=== PATIENT | female | born 1980 | race American Indian/Alaskan Native ===

== ENCOUNTER 2021-08-09 19:31 | Inpatient (IN) | payer BC ==
--- NOTE | 2021-08-09 21:06 | Emergency Department Report ---
ED General Adult HPI - General Chief complaint: Altered Mental Status Stated complaint: AMS Time Seen by Provider: 08/09/21 20:59 Source: EMS ( EMS documentation not available at time of chart dictation ), RN notes reviewed Mode of arrival: Stretcher Limitations: Altered Mental Status, Physical Limitation - History of Present Illness Initial comments: The patient was evaluated in the emergency department for symptoms described in the history of present illness. He/she was evaluated in the context of the global COVID-19 pandemic, which necessitated consideration that the patient might be at risk for infection with the virus that causes COVID-19. Institutional protocols and algorithms that pertain to the evaluation of patients at risk for COVID-19 are in a state of rapid change based on information released by regulatory bodies including the CDC and federal and state organizations. These policies and algorithms were followed during the patient's care in the emergency department. Please note that these policies, procedures and recommendations changed on a rapid basis. This is a 30-year-old female. The details of her past medical history are not known to myself. Patient is currently altered, and not currently accompanied by friends or family at this time for collateral information or additional information. History entirely obtained from triage nursing documentation. Chief complaint is altered mental status, as per nursing documentation "patient's family found patient unresponsive at home on floor, family not aware of patient has alcohol on board, patient does abuse alcohol, eyes jaundice, patient responds to painful stimuli, EMS arrived home at 18: 22." In the emergency room, the patient moves 4 extremities. She makes nonsensical sounds. She is breathing spontaneously. Her Accu-Chek is 117. It is not known how or when she fell. History is limited. Patient currently unable to describe the qualitative nature of symptoms, exacerbating factors relieving factors or aggravating factors -: unknown - Related Data Allergies Allergy/AdvReac Type Severity Reaction Status Date / Time No Known Allergies Allergy Unverified 08/09/21 20:35 ED Review of Systems ROS: Stated complaint: AMS Other details as noted in HPI Comment: Unobtainable due to pts medical conditions ED Past Medical Hx - Past Medical History Previous Medical History?: Yes Additional medical history: ETOH - Social History Smoking Status: Unknown if ever smoked ED Physical Exam - General Limitations: Altered Mental Status, Physical Limitation General appearance: lethargic - Head Head exam: Present: atraumatic, normocephalic - Eye Eye exam: Present: normal appearance, PERRL, EOMI, scleral icterus - ENT ENT exam: Present: normal exam, normal orophraynx, mucous membranes moist, normal external ear exam - Neck Neck exam: Present: normal inspection. Absent: tenderness - Respiratory Respiratory exam: Present: decreased breath sounds. Absent: respiratory distress, rales, rhonchi, stridor - Cardiovascular Cardiovascular Exam: Present: regular rate, normal rhythm, normal heart sounds. Absent: bradycardia, tachycardia, irregular rhythm, systolic murmur, diastolic murmur, rubs, gallop - GI/Abdominal GI/Abdominal exam: Present: soft, distended. Absent: tenderness, guarding, rebound, rigid, pulsatile mass - Extremities Exam Extremities exam: Present: normal inspection, full ROM, pedal edema, other (2+ pulses noted in the bilateral upper and lower extremities. There is no palpable cord. negative Homans sign. Muscular compartments are soft. The pelvis is stable.). Absent: calf tenderness - Back Exam Back exam: Present: normal inspection. Absent: tenderness, CVA tenderness (R), CVA tenderness (L), paraspinal tenderness, vertebral tenderness - Neurological Exam Neurological exam: Present: altered, other (The patient is altered. The patient localizes pain. The patient moves 4 extremities spontaneously.) - Psychiatric Psychiatric exam: Present: normal mood - Skin Skin exam: Present: warm, intact, normal color, other (The patient is diffusely jaundiced) ED Course Vital Signs 08/09/21 08/09/21 20:31 21:43 Temperature 98.3 F Pulse Rate 82 Respiratory 16 18 Rate Blood Pressure 103/58 O2 Sat by Pulse 100 99 Oximetry - Reevaluation(s) Reevaluation #1: 08/09/21 21:41 Differential diagnosis, including not limited to: Hepatic encephalopathy, hyperammonemia, electrolyte derangement, pneumonia, UTI, hypoalbuminemia, malnutrition, intracranial injury, cervical spine injury Assessment and plan: 40-year-old female with stigmata of decompensated liver disease, manifested by abdominal distention, without tenderness, rebound or guarding, positive lower extremity swelling, jaundiced complexion, and scleral icterus. Accu-Chek within normal limits. Patient protecting airway at this ti or. Obtain appropriate laboratory studies. Obtain noncontrast CT scan of the brain and cervical spine. Obtain x-ray of the chest. Should family members present, attempt to obtain collateral information. Reassess. Patient will require admission to medical service once initial diagnostics have resulted. 08/09/21 22:05 Nursing team reports to myself that patient rolled out, and had a gently con trolled descent to the floor. Her right hip hit the floor first, followed by a gentle lowering of her head. There is no ecchymosis or evidence of blunt head trauma to her head. She is breathing spontaneously. CT scan brain and cervical spine negative for acute traumatic findings. X-ray the chest suggest possible interstitial edema, likely secondary to third spacing, likely secondary to hepatic insufficiency. Patient Mr. Neymar Brambila is now currently at the bedside, [id number]. He reports the patient was admitted to [facility] last year for similar symptoms. He reports that the patient has been jaundiced for a few days to weeks. The patient is not COVID-19 vaccinated. I explained my clinical impression to the patient's . He articulates understanding. He is agreeable to have the patient admitted here. We are currently awaiting diagnostic laboratory studies 08/09/21 22:59 Patient is found to have thrombocytopenia, macrocytic anemia, no blood on rectal exam, hyperammonemia, hyperbilirubinemia, metabolic acidosis, with negative serum toxicology studies. Low-dose Lasix, empiric ceftriaxone, Protonix, and rectal lactulose will be ordered. INR is indicative of hepatic insufficiency. Abdomen soft and benign, without rebound, guarding or peritoneal signs. Given coagulopathy, would not perform paracentesis at this time. Contacted GI on-call, Dr Cheng Discussed the patient's history, physical, laboratory studies and imaging studies and clinical impression. She is in agreement with the plan of care, and GI will follow in consultation. Request abdominal ultrasound. I will order the ultrasound, and defer to inpatient team to follow this up. Hospital physician, Dr. Felipe Amos to admit to IMS On rectal examination, brown stool, no obvious blood, chaperoned by nurse Hermelinda. 08/09/21 23:36 Have received call from gastroenterology, they requested noncontrast CT scan of the abdomen pelvis to better delineate anatomy, will cancel ultrasound. ED Medical Decision Making - Lab Data Result diagrams: 08/09/21 21:25 08/09/21 21:25 Vital Signs 08/09/21 20:31 Temperature 98.3 F Pulse Rate 82 Respiratory 16 Rate Blood Pressure 103/58 O2 Sat by Pulse 100 Oximetry Lab Results 08/09/21 08/09/21 08/09/21 Range/Units 21:25 21:25 21:25 WBC 13.4 H (4.5-11.0) K/mm3 RBC 2.06 L (3.65-5.03) M/mm3 Hgb 7.4 L (10.1-14.3) gm/dl Hct 21.9 L (30.3-42.9) % MCV 106 H (79-97) fl MCH 36 H (28-32) pg MCHC 34 (30-34) % RDW 20.8 H (13.2-15.2) % Plt Count 108 L (140-440) K/mm3 Lymph % (Auto) 14.2 (13.4-35.0) % [place] % (Auto) 7.3 (0.0-7.3) % Eos % (Auto) 0.2 (0.0-4.3) % Baso % (Auto) 0.2 (0.0-1.8) % Lymph # (Auto) 1.9 (1.2-5.4) K/mm3 [place] # (Auto) 1.0 H (0.0-0.8) K/mm3 Eos # (Auto) 0.0 (0.0-0.4) K/mm3 Baso # (Auto) 0.0 (0.0-0.1) K/mm3 Seg Neutrophils % 78.1 H (40.0-70.0) % Seg Neutrophils # 10.5 H (1.8-7.7) K/mm3 PT 33.7 H (12.2-14.9) Sec. INR 2.85 H (0.87-1.13) APTT 49.2 H (24.2-36.6) Sec. Sodium 137 (137-145) mmol/L Potassium 4.9 (3.6-5.0) mmol/L Chloride 100.8 (98-107) mmol/L Carbon Dioxide 17 L (22-30) mmol/L Anion Gap 24 mmol/L BUN 30 H (7-17) mg/dL Creatinine 1.1 (0.6-1.2) mg/dL Estimated GFR 54 ml/min BUN/Creatinine Ratio 27 % Glucose 126 H (65-100) mg/dL POC Glucose (70-105) mg/dL Calcium 8.7 (8.4-10.2) mg/dL Total Bilirubin 19.40 H (0.1-1.2) mg/dL AST 174 H (5-40) units/L ALT 53 (7-56) units/L Alkaline Phosphatase 97 (35-129) units/L Ammonia (25-60) umol/L Total Creatine Kinase 81 (30-135) units/L Troponin T < 0.010 (0.00-0.029) ng/mL Total Protein 7.8 (6.3-8.2) g/dL Albumin 2.5 L (3.9-5) g/dL Albumin/Globulin Ratio 0.5 % HCG, Quant (0-4) mIU/mL Urine RBC (Auto) (0.0-6.0) /HPF U Epithel Cells (Auto) (0-13.0) /HPF Salicylates (2.8-20.0) mg/dL Acetaminophen (10.0-30.0) ug/mL Plasma/Serum Alcohol (0-0.07) % Blood Type Antibody Screen 08/09/21 08/09/21 08/09/21 Range/Units 21:25 21:25 21:25 WBC (4.5-11.0) K/mm3 RBC (3.65-5.03) M/mm3 Hgb (10.1-14.3) gm/dl Hct (30.3-42.9) % MCV (79-97) fl MCH (28-32) pg MCHC (30-34) % RDW (13.2-15.2) % Plt Count (140-440) K/mm3 Lymph % (Auto) (13.4-35.0) % [place] % (Auto) (0.0-7.3) % Eos % (Auto) (0.0-4.3) % Baso % (Auto) (0.0-1.8) % Lymph # (Auto) (1.2-5.4) K/mm3 [place] # (Auto) (0.0-0.8) K/mm3 Eos # (Auto) (0.0-0.4) K/mm3 Baso # (Auto) (0.0-0.1) K/mm3 Seg Neutrophils % (40.0-70.0) % Seg Neutrophils # (1.8-7.7) K/mm3 PT (12.2-14.9) Sec. INR (0.87-1.13) APTT (24.2-36.6) Sec. Sodium (137-145) mmol/L Potassium (3.6-5.0) mmol/L Chloride (98-107) mmol/L Carbon Dioxide (22-30) mmol/L Anion Gap mmol/L BUN (7-17) mg/dL Creatinine (0.6-1.2) mg/dL Estimated GFR ml/min BUN/Creatinine Ratio % Glucose (65-100) mg/dL POC Glucose (70-105) mg/dL Calcium (8.4-10.2) mg/dL Total Bilirubin (0.1-1.2) mg/dL AST (5-40) units/L ALT (7-56) units/L Alkaline Phosphatase (35-129) units/L Ammonia 293.0 H (25-60) umol/L Total Creatine Kinase (30-135) units/L Troponin T (0.00-0.029) ng/mL Total Protein (6.3-8.2) g/dL Albumin (3.9-5) g/dL Albumin/Globulin Ratio % HCG, Quant (0-4) mIU/mL Urine RBC (Auto) (0.0-6.0) /HPF U Epithel Cells (Auto) (0-13.0) /HPF Salicylates < 0.3 L (2.8-20.0) mg/dL Acetaminophen 5.0 L (10.0-30.0) ug/mL Plasma/Serum Alcohol (0-0.07) % Blood Type Antibody Screen 08/09/21 08/09/21 08/09/21 Range/Units 21:25 21:25 21:26 WBC (4.5-11.0) K/mm3 RBC (3.65-5.03) M/mm3 Hgb (10.1-14.3) gm/dl Hct (30.3-42.9) % MCV (79-97) fl MCH (28-32) pg MCHC (30-34) % RDW (13.2-15.2) % Plt Count (140-440) K/mm3 Lymph % (Auto) (13.4-35.0) % [place] % (Auto) (0.0-7.3) % Eos % (Auto) (0.0-4.3) % Baso % (Auto) (0.0-1.8) % Lymph # (Auto) (1.2-5.4) K/mm3 [place] # (Auto) (0.0-0.8) K/mm3 Eos # (Auto) (0.0-0.4) K/mm3 Baso # (Auto) (0.0-0.1) K/mm3 Seg Neutrophils % (40.0-70.0) % Seg Neutrophils # (1.8-7.7) K/mm3 PT (12.2-14.9) Sec. INR (0.87-1.13) APTT (24.2-36.6) Sec. Sodium (137-145) mmol/L Potassium (3.6-5.0) mmol/L Chloride (98-107) mmol/L Carbon Dioxide (22-30) mmol/L Anion Gap mmol/L BUN (7-17) mg/dL Creatinine (0.6-1.2) mg/dL Estimated GFR ml/min BUN/Creatinine Ratio % Glucose (65-100) mg/dL POC Glucose 117 H (70-105) mg/dL Calcium (8.4-10.2) mg/dL Total Bilirubin (0.1-1.2) mg/dL AST (5-40) units/L ALT (7-56) units/L Alkaline Phosphatase (35-129) units/L Ammonia (25-60) umol/L Total Creatine Kinase (30-135) units/L Troponin T (0.00-0.029) ng/mL Total Protein (6.3-8.2) g/dL Albumin (3.9-5) g/dL Albumin/Globulin Ratio % HCG, Quant < 2 (0-4) mIU/mL Urine RBC (Auto) (0.0-6.0) /HPF U Epithel Cells (Auto) (0-13.0) /HPF Salicylates (2.8-20.0) mg/dL Acetaminophen (10.0-30.0) ug/mL Plasma/Serum Alcohol < 0.01 (0-0.07) % Blood Type Antibody Screen 08/09/21 08/09/21 Range/Units 21:38 21:43 WBC (4.5-11.0) K/mm3 RBC (3.65-5.03) M/mm3 Hgb (10.1-14.3) gm/dl Hct (30.3-42.9) % MCV (79-97) fl MCH (28-32) pg MCHC (30-34) % RDW (13.2-15.2) % Plt Count (140-440) K/mm3 Lymph % (Auto) (13.4-35.0) % [place] % (Auto) (0.0-7.3) % Eos % (Auto) (0.0-4.3) % Baso % (Auto) (0.0-1.8) % Lymph # (Auto) (1.2-5.4) K/mm3 [place] # (Auto) (0.0-0.8) K/mm3 Eos # (Auto) (0.0-0.4) K/mm3 Baso # (Auto) (0.0-0.1) K/mm3 Seg Neutrophils % (40.0-70.0) % Seg Neutrophils # (1.8-7.7) K/mm3 PT (12.2-14.9) Sec. INR (0.87-1.13) APTT (24.2-36.6) Sec. Sodium (137-145) mmol/L Potassium (3.6-5.0) mmol/L Chloride (98-107) mmol/L Carbon Dioxide (22-30) mmol/L Anion Gap mmol/L BUN (7-17) mg/dL Creatinine (0.6-1.2) mg/dL Estimated GFR ml/min BUN/Creatinine Ratio % Glucose (65-100) mg/dL POC Glucose (70-105) mg/dL Calcium (8.4-10.2) mg/dL Total Bilirubin (0.1-1.2) mg/dL AST (5-40) units/L ALT (7-56) units/L Alkaline Phosphatase (35-129) units/L Ammonia (25-60) umol/L Total Creatine Kinase (30-135) units/L Troponin T (0.00-0.029) ng/mL Total Protein (6.3-8.2) g/dL Albumin (3.9-5) g/dL Albumin/Globulin Ratio % HCG, Quant (0-4) mIU/mL Urine RBC (Auto) 3.0 (0.0-6.0) /HPF U Epithel Cells (Auto) 2.0 (0-13.0) /HPF Salicylates (2.8-20.0) mg/dL Acetaminophen (10.0-30.0) ug/mL Plasma/Serum Alcohol (0-0.07) % Blood Type A POSITIVE Antibody Screen Negative - EKG Data -: EKG Interpreted by [place] EKG shows normal: sinus rhythm Rate: normal - EKG Data When compared to previous EKG there are: previous EKG unavailable 08/09/21 21:42 The EKG is interpreted at 21: 29 Sinus rhythm, 87 bpm. Normal axis, normal P wave axis, motion artifact, QTC 4 7 7 ms. This is an abnormal EKG. This is not a STEMI - Radiology Data Radiology results: pending, report reviewed, image reviewed CT CERVICAL SPINE WITHOUT CONTRAST INDICATION / CLINICAL INFORMATION: ams found down. TECHNIQUE: Axial CT images were obtained through the cervical spine. Sagittal and coronal reformatted images were produced. All CT scans at this location are performed using CT dose reduction for ALARA by means of automated exposure control. COMPARISON: None available. FINDINGS: POSTOPERATIVE CHANGE:none ALIGNMENT: Loss the normal cervical lordosis is noted. Otherwise normal alignment is maintained. VERTEBRAE: No indication of fracture or bone destruction. DISC SPACES: Disc height is normally maintained throughout. DEGENERATIVE CHANGES: Is no indication of significant facet or uncovertebral arthropathy. CRANIOCERVICAL JUNCTION:No significant abnormality. SPINAL CANAL: Central spinal canal is adequately maintained throughout. PARASPINAL SOFT TISSUES: No significant abnormality. ADDITIONAL FINDINGS: None. LUNG APICES: No significant abnormality of visualized lungs. IMPRESSION: 1. No indication of fracture, traumatic subluxation or significant degenerative change. Signer Name: Farhat Andrade MD Signed: 08/09/2021 8:48 PM Workstation Name: [id number] CT HEAD WITHOUT CONTRAST INDICATION / CLINICAL INFORMATION: Altered Mental Status. TECHNIQUE: All CT scans at this location are performed using CT dose reduction for ALARA by means of automated exposure control. COMPARISON: None available. FINDINGS: HEMORRHAGE: No evidence of intracranial hemorrhage or extra-axial fluid collection. EXTRA-AXIAL SPACES: Cortical sulci, sylvian fissures and basilar cisterns have an unremarkable appearance. VENTRICULAR SYST EM: The third and lateral ventricles are of normal size and configuration. CEREBRAL PARENCHYMA: No areas of abnormal brain parenchymal attenuation are identified. There is no indication of recent infarction. MIDLINE SHIFT OR HERNIATION: There is no mass effect. CEREBELLUM / BRAINSTEM: Brainstem and cerebellum have an unremarkable appearance. MIDLINE STRUCTURES:No abnormalities of the pituitary gland or pineal region are identified. INTRACRANIAL VESSELS:No abnormalities are identified on this noncontrast head CT. ORBITS: There is deformity of the lamina papyracea on the right secondary to remote right orbital blowout fracture. There is no associated orbital emphysema. SOFT TISSUES of HEAD: No significant abnormality. CALVARIUM: Evaluation of bone windows reveals no abnormalities. PARANASAL SINUSES / MASTOID AIR CELLS: Visualized portions of the paranasal sinuses are free from inflammatory mucosal disease. Mastoid air cells are normally pneumatized. IMPRESSION: 1. No significant intracranial abnormality. 2. Evidence remote medial wall blowout fracture right orbit. Signer Name: Farhat Andrade MD Signed: 08/09/2021 8:52 PM Workstation Name: [id number] CHEST 1 VIEW 08/09/2021 9:08 PM INDICATION / CLINICAL INFORMATION: Altered Mental Status. COMPARISON: None available. FINDINGS: SUPPORT DEVICES: None. HEART / MEDIASTINUM: No significant abnormality. LUNGS / PLEURA: There are generalized bilateral interstitial opacities. No significant pleural effusion. No pneumothorax. ADDITIONAL FINDINGS: No significant additional findings. IMPRESSION: Interstitial edema versus other interstitial prominence, possibly representing chronic interstitial lung disease. Signer Name: Clinton Soria MD Signed: 08/09/2021 8:38 PM Workstation Name: [id number] Critical Care Time: Yes Critical care time in (mins) excluding proc time.: 35 Critical care attestation.: If time is entered above; I have spent that time in minutes in the direct care of this critically ill patient, excluding procedure time. ED Disposition Clinical Impression: Acute encephalopathy, Fall, Jaundice, Hepatic insufficiency, Anemia, Coagulopathy Disposition: ADMITTED INPATIENT Is pt being admited?: Yes Does the pt Need Aspirin: No Condition: Serious
--- NOTE | 2021-08-09 21:42 | XRay Report ---
CHEST 1 VIEW 08/09/2021 9:08 PM INDICATION / CLINICAL INFORMATION: Altered Mental Status. COMPARISON: None available. FINDINGS: SUPPORT DEVICES: None. HEART / MEDIASTINUM: No significant abnormality. LUNGS / PLEURA: There are generalized bilateral interstitial opacities. No significant pleural effusi on. No pneumothorax. ADDITIONAL FINDINGS: No significant additional findings. IMPRESSION: Interstitial edema versus other interstitial prominence, possibly representing chronic interstitial l kassandra disease. Signer Name: Clinton Soria MD Signed: 08/09/2021 9:38 PM Workstation Name: [id number]
--- NOTE | 2021-08-09 21:53 | Cat Scan Report ---
CT CERVICAL SPINE WITHOUT CONTRAST INDICATION / CLINICAL INFORMATION: ams found down. TECHNIQUE: Axial CT images were obtained through the cervical spine. Sagittal and coronal reformatted images wer e produced. All CT scans at this location are performed using CT dose reduction for ALARA by means of automated exposure control. COMPARISON: None available. FINDINGS: POSTOPERATIVE CHANGE:none ALIGNMENT: Loss the normal cervical lordosis is noted. Otherwise normal alignment is maintained. VERTEBRAE: No indication of fracture or bone destruction. DISC SPACES: Disc height is normally maintained throughout. DEGENERATIVE CHANGES: Is no indication of significant facet or uncovertebral arthropathy. CRANIOCERVICAL JUNCTION:No significant abnormality. SPINAL CANAL: Central spinal canal is adequately maintained throughout. PARASPINAL SOFT TISSUES: No significant abnormality. ADDITIONAL FINDINGS: None. LUNG APICES: No significant abnormality of visualized lungs. IMPRESSION: 1. No indication of fracture, traumatic subluxation or significant degenerative change. Signer Name: Farhat Andrade MD Signed: 08/09/2021 9:48 PM Workstation Name: [id number]
--- NOTE | 2021-08-09 21:57 | Cat Scan Report ---
CT HEAD WITHOUT CONTRAST INDICATION / CLINICAL INFORMATION: Altered Mental Status. TECHNIQUE: All CT scans at this location are performed using CT dose reduction for ALARA by means of automated e xposure control. COMPARISON: None available. FINDINGS: HEMORRHAGE: No evidence of intracranial hemorrhage or extra-axial fluid collection. EXTRA-AXIAL SPACES: Cortical sulci, sylvian fissures and basilar cisterns have an unremarkable appear ance. VENTRICULAR SYSTEM: The third and lateral ventricles are of normal size and configuration. CEREBRAL PARENCHYMA: No areas of abnormal brain parenchymal attenuation are identified. There is no i ndication of recent infarction. MIDLINE SHIFT OR HERNIATION: There is no mass effect. CEREBELLUM / BRAINSTEM: Brainstem and cerebellum have an unremarkable appearance. MIDLINE STRUCTURES:No abnormalities of the pituitary gland or pineal region are identified. INTRACRANIAL VESSELS:No abnormalities are identified on this noncontrast head CT. ORBITS: There is deformity of the lamina papyracea on the right secondary to remote right orbital blo wout fracture. There is no associated orbital emphysema. SOFT TISSUES of HEAD: No significant abnormality. CALVARIUM: Evaluation of bone windows reveals no abnormalities. PARANASAL SINUSES / MASTOID AIR CELLS: Visualized portions of the paranasal sinuses are free from inf lammatory mucosal disease. Mastoid air cells are normally pneumatized. IMPRESSION: 1. No significant intracranial abnormality. 2. Evidence remote medial wall blowout fracture right orbit. Signer Name: Farhat Andrade MD Signed: 08/09/2021 9:52 PM Workstation Name: [id number]
[2021-08-09 22:05] LABS: Basophils % (Auto) 0.2 % (0.0-1.8); Eosinophils % (Auto) 0.2 % (0.0-4.3); Hematocrit 21.9 % (30.3-42.9); Hemoglobin 7.4 gm/dl (10.1-14.3); Lymphocytes # (Auto) 1.9 K/mm3 (1.2-5.4); Lymphocytes % (Auto) 14.2 % (13.4-35.0); Mean Corpuscular HGB Conc 34 % (30-34); Mean Corpuscular Volume 106 fl (79-97); Monocytes % (Auto) 7.3 % (0.0-7.3); Platelet Count 108 K/mm3 (140-440); Red Blood Count 2.06 M/mm3 (3.65-5.03)
[2021-08-09 22:06] LABS: Red Cell Distribution Width 20.8 % (13.2-15.2)
[2021-08-09 22:13] LABS: Alanine Aminotransferase 53 units/L (7-56); Albumin 2.5 g/dL (3.9-5); BUN/Creatinine Ratio 27; Blood Urea Nitrogen 30 mg/dL (7-17); Calcium 8.7 mg/dL (8.4-10.2); Hemolysis Index 18
[2021-08-09 22:15] LABS: INR 2.85 (0.87-1.13)
[2021-08-09 22:16] LABS: Partial Thromboplastin Time 49.2 Sec. (24.2-36.6)
[2021-08-09] MEDS ORDERED: PANTOPRAZOLE 40 MG INJ IV ONE (22:24)
[2021-08-09] MEDS ORDERED: cefTRIAXone/NS 2 GM/100 ML 2 GM/100 ML BAG IV ONE (22:38)
[2021-08-09] MEDS ORDERED: FUROSEMIDE 20 MG/2 ML INJ IV ONE (22:39)
[2021-08-09 22:54] LABS: Calcium Oxalate Crystals,Urine FEW; Mucus,Urine FEW /HPF
[2021-08-09 22:57] LABS: Color,Urine Amber (Yellow)
[2021-08-09 22:59] LABS: Amphetamine Screen,Urine PRESUMPTIVE NEGATIVE; Benzodiazepines Screen,Urine PRESUMPTIVE NEGATIVE; Blood,Urine Moderate (Negative); Cannabinoid Screen,Urine PRESUMPTIVE NEGATIVE; Cocaine Screen,Urine PRESUMPTIVE NEGATIVE; Methadone Screen,Urine PRESUMPTIVE NEGATIVE; Opiate Screen,Urine PRESUMPTIVE NEGATIVE
[2021-08-09 23:00] LABS: Bilirubin,Urine Color Interference (Negative); Protein,Urine <15 mg/dL mg/dL (Negative); Urobilinogen,Urine < 2.0 mg/dL (<2.0)
[2021-08-09 23:03] LABS: Ictotest,Urine Positive (Negative)
[2021-08-09] MEDS ORDERED: ONDANSETRON 4 MG/2 ML INJ IV PRN (23:04)
[2021-08-09] MEDS ORDERED: IBUPROFEN 600 MG TAB PO PRN (23:04)
[2021-08-09] MEDS ORDERED: LORazepam 2 MG/ML VIAL IV PRN ×2 (23:04)
[2021-08-09] MEDS ORDERED: MORPHINE 2 MG/1 ML INJ IV PRN (23:04)
[2021-08-09] MEDS ORDERED: MORPHINE 4 MG/1 ML INJ IV PRN (23:04)
[2021-08-09] MEDS ORDERED: MAGNESIUM HYDROXIDE (MOM) ORAL LIQD UDC PO PRN (23:04)
--- NOTE | 2021-08-09 23:32 | History and Physical Report ---
History of Present Illness Date of examination: 08/09/21 Date of admission: 08/09/2021 Chief complaint: Altered Mental Status History of present illness: 40-year-old -[place] female with known history of alcohol abuse brought in to the emergency room today for evaluation of changes in mental status. Information was obtained from the ER staff as patient is unable to give any history at this time and family members were also not available. Patient was said to have been found by family unresponsive on the floor and therefore EMS was called in. Work-up in the emergency room today, labs were globally abnormal with leukocytosis of 13.4, hemoglobin of 7.4 and hematocrit of 21.9. Platelet count was 108. INR was 2.85. CO2 of 17, BUN of 38 and creatinine of 1.1. Lactic acid is 4.8. AST of 174. Total bilirubin of 19.4. Urinalysis essentially unremarkable. Alcohol level was less than 0.01. Patient being admitted with acute encephalopathy and anemia. Past History Past Medical History: anemia, liver disease Past Surgical History: No surgical history Social history: alcohol abuse Family history: no significant family history Medications and Allergies Allergies Allergy/AdvReac Type Severity Reaction Status Date / Time No Known Allergies Allergy Unverified 08/09/21 20:35 Active Meds: Active Medications Ibuprofen (Ibuprofen 600 Mg Tab) 600 mg PO Q6H PRN PRN Reason: Pain, Mild (1-3) Lactulose (Lactulose Enema 1000 Ml) 200 gm MT ONCE ONE Stop: 08/09/21 23:37 Last Admin: 08/09/21 23:05 Dose: 200 gm Lorazepam (Lorazepam 2 Mg/Ml Vial) 2 mg IV Q1H PRN PRN Reason: CIWA-Ar 8-15 Lorazepam (Lorazepam 2 Mg/Ml Vial) 4 mg IV Q1H PRN PRN Reason: CIWA-Ar 16-25 Lorazepam (Lorazepam 2 Mg/Ml Vial) 4 mg IV Q15MIN PRN PRN Reason: CIWA-Ar >25 Magnesium Hydroxide (Magnesium Hydroxide (Mom) Oral Liqd Udc) 30 ml PO Q4H PRN PRN Reason: Constipation Morphine Sulfate (Morphine 2 Mg/1 Ml Inj) 2 mg IV Q4H PRN PRN Reason: Pain, Moderate (4-6) Morphine Sulfate (Morphine 4 Mg/1 Ml Inj) 4 mg IV Q4H PRN PRN Reason: Pain , Severe (7-10) Ondansetron HCl (Ondansetron 4 Mg/2 Ml Inj) 4 mg IV Q8H PRN PRN Reason: Nausea And Vomiting Sodium Chloride (Sodium Chloride 0.9% 10 Ml Flush Syringe) 10 ml IV BID DEREK Sodium Chloride (Sodium Chloride 0.9% 10 Ml Flush Syringe) 10 ml IV PRN PRN PRN Reason: LINE FLUSH Review of Systems ROS unobtainable: due to mental status Exam - Constitutional Vitals: Temp Pulse Resp BP Pulse Ox 98.3 F 82 18 103/58 99 08/09/21 20:31 08/09/21 20:31 08/09/21 21:43 08/09/21 20:31 08/09/21 21:43 General appearance: Present: no acute distress, well-nourished - EENT Eyes: Present: PERRL, EOM intact, scleral icterus ENT: hearing intact, clear oral mucosa, dentition normal - Neck Neck: Present: supple, normal ROM - Respiratory Respiratory effort: normal Respiratory: bilateral: diminished - Cardiovascular Rhythm: regular Heart Sounds: Present: S1 & S2. Absent: gallop, systolic murmur, diastolic murmur, rub, click - Extremities Extremities: no ischemia, pulses intact, pulses symmetrical, No edema, normal temperature, normal color, Full ROM Peripheral Pulses: within normal limits - Abdominal General gastrointestinal: Present: soft, non-tender, distended, normal bowel sounds. Absent: mass - Integumentary Integumentary: Present: clear, warm, dry, jaundice, normal turgor. Absent: rash - Musculoskeletal Musculoskeletal: strength equal bilaterally - Psychiatric Psychiatric: cooperative - Neurologic Neurologic: CNII-XII intact, moves all extremities HEART Score - HEART Score Troponin: Troponin T < 0.010 ng/mL (0.00-0.029) 08/09/21 21:25 Results - Labs CBC & Chem 7: 08/09/21 21:25 08/09/21 21:25 Labs: Abnormal lab results 08/09/21 08/09/21 08/09/21 Range/Units 21:25 21:25 21:25 WBC 13.4 H (4.5-11.0) K/mm3 RBC 2.06 L (3.65-5.03) M/mm3 Hgb 7.4 L (10.1-14.3) gm/dl Hct 21.9 L (30.3-42.9) % MCV 106 H (79-97) fl MCH 36 H (28-32) pg RDW 20.8 H (13.2-15.2) % Plt Count 108 L (140-440) K/mm3 [place] # (Auto) 1.0 H (0.0-0.8) K/mm3 Seg Neutrophils % 78.1 H (40.0-70.0) % Seg Neutrophils # 10.5 H (1.8-7.7) K/mm3 PT 33.7 H (12.2-14.9) Sec. INR 2.85 H (0.87-1.13) APTT 49.2 H (24.2-36.6) Sec. Carbon Dioxide 17 L (22-30) mmol/L BUN 30 H (7-17) mg/dL Glucose 126 H (65-100) mg/dL POC Glucose (70-105) mg/dL Total Bilirubin 19.40 H (0.1-1.2) mg/dL AST 174 H (5-40) units/L Ammonia (25-60) umol/L Albumin 2.5 L (3.9-5) g/dL Urine Blood (Negative) Salicylates (2.8-20.0) mg/dL Acetaminophen (10.0-30.0) ug/mL 08/09/21 08/09/21 08/09/21 Range/Units 21:25 21:25 21:25 WBC (4.5-11.0) K/mm3 RBC (3.65-5.03) M/mm3 Hgb (10.1-14.3) gm/dl Hct (30.3-42.9) % MCV (79-97) fl MCH (28-32) pg RDW (13.2-15.2) % Plt Count (140-440) K/mm3 [place] # (Auto) (0.0-0.8) K/mm3 Seg Neutrophils % (40.0-70.0) % Seg Neutrophils # (1.8-7.7) K/mm3 PT (12.2-14.9) Sec. INR (0.87-1.13) APTT (24.2-36.6) Sec. Carbon Dioxide (22-30) mmol/L BUN (7-17) mg/dL Glucose (65-100) mg/dL POC Glucose (70-105) mg/dL Total Bilirubin (0.1-1.2) mg/dL AST (5-40) units/L Ammonia 293.0 H (25-60) umol/L Albumin (3.9-5) g/dL Urine Blood (Negative) Salicylates < 0.3 L (2.8-20.0) mg/dL Acetaminophen 5.0 L (10.0-30.0) ug/mL 08/09/21 08/09/21 Range/Units 21:26 21:43 WBC (4.5-11.0) K/mm3 RBC (3.65-5.03) M/mm3 Hgb (10.1-14.3) gm/dl Hct (30.3-42.9) % MCV (79-97) fl MCH (28-32) pg RDW (13.2-15.2) % Plt Count (140-440) K/mm3 [place] # (Auto) (0.0-0.8) K/mm3 Seg Neutrophils % (40.0-70.0) % Seg Neutrophils # (1.8-7.7) K/mm3 PT (12.2-14.9) Sec. INR (0.87-1.13) APTT (24.2-36.6) Sec. Carbon Dioxide (22-30) mmol/L BUN (7-17) mg/dL Glucose (65-100) mg/dL POC Glucose 117 H (70-105) mg/dL Total Bilirubin (0.1-1.2) mg/dL AST (5-40) units/L Ammonia (25-60) umol/L Albumin (3.9-5) g/dL Urine Blood Moderate A (Negative) Salicylates (2.8-20.0) mg/dL Acetaminophen (10.0-30.0) ug/mL Assessment and Plan Assessment: 1.Acute Encephalopathy 2.Anemia 3.Elevated Liver Enzymes 4.Alcohol Abuse 5.Fall Plan: 1. Patient admitted and will be closely monitored in the IMCU. 2. Technical Proposal Writer has been consulted for evaluation and recommendations. 3. Meanwhile, patient has been started on lactulose. 4. We will place patient on alcohol withdrawal protocol. 5. We will continue to monitor labs including PT/INR. 6. Patient also commenced on empiric IV antibiotics. DVT Prophylaxis: SCD Code Status: Full Code.
[2021-08-09] MEDS ORDERED: LACTULOSE ENEMA 1000 ML PR ONE (23:36)
--- NOTE | 2021-08-10 00:59 | Cat Scan Report ---
CT ABDOMEN AND PELVIS WITHOUT CONTRAST INDICATION: Cirrhosis and abdominal distention. TECHNIQUE: Axial CT images were obtained through the abdomen and pelvis without IV contrast. All CT scans at [facility] location are performed using CT dose reduction for ALARA by means of automated exposure control. COMPARISON: None available. FINDINGS: LOWER CHEST: Calcified right lower lobe granulomas LIVER: Cirrhosis with nodular surface contour. Moderate hepatic steatosis GALLBLADDER: Multiple gallstones. BILE DUCTS: No significant abnormality. PANCREAS: No significant abnormality. SPLEEN: Borderline enlarged measuring 13.3 cm. ADRENALS: No significant abnormality. RIGHT KIDNEY and URETER: No significant abnormality. LEFT KIDNEY and URETER: 1.4 cm hypodense lesion characteristic for cyst. STOMACH and SMALL BOWEL: Gastric bypass COLON: Rectal decompression tube APPENDIX: No significant abnormality. PERITONEUM: Small amount of ascites. No free air. No fluid collection. LYMPH NODES: No significant adenopathy. AORTA and ARTERIES: No significant abnormality. IVC and VEINS: Recannulated periumbilical vein with gastroesophageal varices. URINARY BLADDER: No significant abnormality. REPRODUCTIVE ORGANS: Intrauterine IUD ADDITIONAL FINDINGS: None. SKELETAL SYSTEM: Markedly advanced right hip arthropathy. IMPRESSION: 1. Cirrhosis with portal hypertension manifested by mild splenomegaly, trace ascites and varices. 2. Cholelithiasis. Signer Name: Brody Hager MD Signed: 08/10/2021 12:55 AM Workstation Name: [id number]
[2021-08-10 05:28] LABS: BUN/Creatinine Ratio 40; Blood Urea Nitrogen 32 mg/dL (7-17); Calcium 8.7 mg/dL (8.4-10.2); Hemolysis Index 80
[2021-08-10] MEDS: LORazepam 2 MG/ML VIAL IV PRN (08:06)
[2021-08-10] MEDS: cefTRIAXone/NS 1 GM/50 ML 1 GM/50 ML BAG IV SCH (09:50)
--- NOTE | 2021-08-10 10:43 | Progress Note ---
Assessment and Plan Assessment and plan: 40-year-old -[place] female with known history of alcohol abuse brought in to the emergency room today for evaluation of changes in mental status. Information was obtained from the ER staff as patient is unable to give any history at this time and family members were also not available. Patient was said to have been found by family unresponsive on the floor and therefore EMS was called in. Work-up in the emergency room today, labs were globally abnormal with leukocytosis of 13.4, hemoglobin of 7.4 and hematocrit of 21.9. Platelet count was 108. INR was 2.85. CO2 of 17, BUN of 38 and creatinine of 1.1. Lactic acid is 4.8. AST of 174. Total bilirubin of 19.4. Urinalysis essentially unremarkable. Alcohol level was less than 0.01. Patient being admitted with acute encephalopathy and anemia. CT abdomen and pelvis IMPRESSION: 1. Cirrhosis with portal hypertension manifested by mild splenomegaly, trace ascites and varices. 2. Cholelithiasis. 1.Acute Encephalopathy secondary to liver cirrhosis 2.Anemia 3.Elevated Liver Enzymes 4.Alcohol Abuse per history 5.Fall 6. Cholelithiasis 7. Secondary coagulopathy due to liver failure with INR of 2.85 8. Portal hypertension 9. Morbid obesity 10. Thrombocytosis Plan: 1. Patient admitted and will be closely monitored in the IMCU. Continue IMCU care due to severe encephalopathy. 2. Certified Detention Deputy has been consulted for evaluation and recommendations. 3. Meanwhile, patient has been started on lactulose. 4. We will place patient on alcohol withdrawal protocol. 5. We will continue to monitor labs including PT/INR. 6. Patient also commenced on empiric IV antibiotics. 7. Had extensive discussion with the discussed goals of care advanced directive for 35 minutes. He verbalized understanding is the severity of her illness. We will place an NG tube and start lactulose via the NG tube while monitoring mentation improvement. 8. Weight loss discussion with patient more awake DVT Prophylaxis: SCD Code Status: Full Code. Poor prognosis Critical care time 35 minutes History Interval history: Patient seen and examined this morning our nurse and by the bedside. Per nurse patient was agitated earlier this morning had received some Ativan as a result is somnolent this morning. advises that the patient was just discharged about a month ago from [facility] for similar event and at that time was told to avoid alcohol unfortunately she still drank a couple here and there. No recent drinking in the last week with that he is aware of. Hospitalist Physical - Physical exam Narrative exam: VITAL SIGNS: Reviewed. GENERAL: The patient appears normally developed, morbidly obese somnolent [sedated] vital signs as documented. HEAD: No signs of head trauma. EYES: Pupils are equal. Significant scleral icterus extraocular motions intact. EARS: Hearing grossly intact. MOUTH: Oropharynx is normal. NECK: No adenopathy, no JVD. CHEST: Chest with clear breath sounds bilaterally. No wheezes, rales, or rhonchi. CARDIAC: Regular rate and rhythm. S1 and S2, without murmurs, gallops, or rubs. VASCULAR: No Edema. Peripheral pulses normal and equal in all extremities. ABDOMEN: Soft, non tender and non distended. No rebound or guarding, and no masses palpated. Bowel Sounds normal. MUSCULOSKELETAL: Good range of motion of all major joints. Extremities without clubbing, cyanosis or edema. NEUROLOGIC EXAM: Per nursing staff when awake disoriented. No focal sensory or strength deficits. Speech normal. But does not follow any commands. PSYCHIATRIC: Mood sedated SKIN: Jaundice detail exam as documented in skin assessment - Constitutional Vitals: Temp Pulse Resp BP Pulse Ox 97 F L 75 15 93/37 100 08/10/21 08:00 08/10/21 09:21 08/10/21 09:21 08/10/21 09:21 08/10/21 09:21 General appearance: Present: no acute distress, well-nourished HEART Score - HEART Score Troponin: Troponin T < 0.010 ng/mL (0.00-0.029) 08/09/21 21:25 Results - Labs CBC & Chem 7: 08/09/21 21:25 08/10/21 04:34 Labs: Laboratory Last Values WBC 13.4 K/mm3 (4.5-11.0) H 08/09/21 21:25 RBC 2.06 M/mm3 (3.65-5.03) L 08/09/21 21:25 Hgb 7.4 gm/dl (10.1-14.3) L 08/09/21 21:25 Hct 21.9 % (30.3-42.9) L 08/09/21 21:25 MCV 106 fl (79-97) H 08/09/21 21:25 MCH 36 pg (28-32) H 08/09/21 21:25 MCHC 34 % (30-34) 08/09/21 21: RDW 20.8 % (13.2-15.2) H 08/09/21 21:25 Plt Count 108 K/mm3 (140-440) L 08/09/21 21:25 Lymph % (Auto) 14.2 % (13.4-35.0) 08/09/21 21:25 [place] % (Auto) 7.3 % (0.0-7.3) 08/09/21: Eos % (Auto) 0.2 % (0.0-4.3) 08/09/21: Baso % (Auto) 0.2 % (0.0-1.8) 08/09/21: Lymph # (Auto) 1.9 K/mm3 (1.2-5.4) 08/09/21 21:25 [place] # (Auto) 1.0 K/mm3 (0.0-0.8) H 08/09/21 21:25 Eos # (Auto) 0.0 K/mm3 (0.0-0.4) 08/09/21:25 Baso # (Auto) 0.0 K/mm3 (0.0-0.1) 08/09/21 21: Seg Neutrophils % 78.1 % (40.0-70.0) H 08/09/21 21: Seg Neutrophils # 10.5 K/mm3 (1.8-7.7) H 08/09/21 21:25 PT 33.7 Sec. (12.2-14.9) H 08/09/21 21:25 INR 2.85 (0.87-1.13) H 08/09/21 21:25 APTT 49.2 Sec. (24.2-36.6) H 08/09/21 21:25 Sodium 136 mmol/L (137-145) L 08/10/21 04:34 Potassium 4.7 mmol/L (3.6-5.0) 08/10/21 04:34 Chloride 104.1 mmol/L (98-107) 08/10/21 04:34 Carbon Dioxide 18 mmol/L (22-30) L 08/10/21 04:34 Anion Gap 19 mmol/L 08/10/21 04:34 BUN 32 mg/dL (7-17) H 08/10/21 04:34 Creatinine 0.8 mg/dL (0.6-1.2) 08/10/21 04:34 Estimated GFR > 60 ml/min 08/10/21 04:34 BUN/Creatinine Ratio 40 % 08/10/21 04:34 Glucose 109 mg/dL (65-100) H 08/10/21 04:34 POC Glucose 117 mg/dL (70-105) H 08/09/21 21:26 Lactic Acid 1.90 mmol/L (0.7-2.0) 08/10/21 Unknown Calcium 8.7 mg/dL (8.4-10.2) 08/10/21 04:34 Magnesium 1.90 mg/dL (1.7-2.3) 08/09/21 21:25 Total Bilirubin 19.40 mg/dL (0.1-1.2) H 08/09/21 21:25 AST 174 units/L (5-40) H 08/09/21 21:25 ALT 53 units/L (7-56) 08/09/21 21:25 Alkaline Phosphatase 97 units/L (35-129) 08/09/21 21:25 Ammonia 73.0 umol/L (25-60) H 08/10/21 04:34 Total Creatine Kinase 86 units/L (30-135) 08/10/21 04:34 Troponin T < 0.010 ng/mL (0.00-0.029) 08/09/21 21:25 Total Protein 7.8 g/dL (6.3-8.2) 08/09/21 21:25 Albumin 2.5 g/dL (3.9-5) L 08/09/21 21:25 Albumin/Globulin Ratio 0.5 % 08/09/21 21:25 TSH 2.380 mlU/mL (0.270-4.200) 08/09/21 21:25 HCG, Quant < 2 mIU/mL (0-4) 08/09/21 21:25 Urine Color [place] (Yellow) 08/09/21 21:43 Urine Turbidity Clear (Clear) 08/09/21 21:43 Urine pH 6.0 (5.0-7.0) 08/09/21 21:43 Ur Specific [place] 1.020 (1.003-1.030) 08/09/21 21:43 Urine Protein <15 mg/dl mg/dL (Negative) 08/09/21 21:43 Urine Glucose (UA) Neg mg/dL (Negative) 08/09/21 21:43 Urine Ketones Neg mg/dL (Negative) 08/09/21 21:43 Urine Blood Moderate (Negative) A 08/09/21 21:43 Urine Nitrite Neg (Negative) 08/09/21 21:43 Ur Reducing Substances Not Reportable 08/09/21 21:43 Urine Bilirubin Color interference (Negative) 08/09/21 21:43 Urine Ictotest Positive (Negative) 08/09/21 21:43 Urine Urobilinogen < 2.0 mg/dL (<2.0) 08/09/21 21:43 Ur Leukocyte Esterase Neg (Negative) 08/09/21 21:43 Urine WBC (Auto) 4.0 /HPF (0.0-6.0) 08/09/21 21:43 Urine RBC (Auto) 3.0 /HPF (0.0-6.0) 08/09/21 21:43 U Epithel Cells (Auto) 2.0 /HPF (0-13.0) 08/09/21 21:43 Calcium Oxalate Crystal Few 08/09/21 21:43 Urine Mucus Few /HPF 08/09/21 21:43 Salicylates < 0.3 mg/dL (2.8-20.0) L 08/09/21 21:25 Urine Opiates Screen Presumptive negative 08/09/21 21:43 Urine Methadone Screen Presumptive negative 08/09/21 21:43 Acetaminophen 5.0 ug/mL (10.0-30.0) L 08/09/21 21:25 Ur Barbiturates Screen Presumptive negative 08/09/21 21:43 Ur Phencyclidine Scrn Presumptive negative 08/09/21 21:43 Ur Amphetamines Screen Presumptive negative 08/09/21 21:43 U Benzodiazepines Scrn Presumptive negative 08/09/21 21:43 Urine Cocaine Screen Presumptive negative 08/09/21 21:43 U Marijuana (THC) Screen Presumptive negative 06/09/22 21:43 Drugs of Abuse Note Disclamer 08/09/21 21:43 Plasma/Serum Alcohol < 0.01 % (0-0.07) 08/09/21 21:25 Blood Type A POSITIVE 08/09/21 21:38 Antibody Screen Negative 08/09/21 21:38 Microbiology: Microbiology 08/09/21 22:24 Stool - Stool Aspirate Stool Occult Blood (TERESA) - Final Willis/IV: Voiding Method External Female Catheter Active Medications - Current Medications Current Medications: Generic Name Dose Route Start Last Admin Trade Name Freq PRN Reason Stop Dose Admin Ceftriaxone Sodium 1 gm in 50 mls @ 100 mls/hr 08/10/21 10:00 08/10/21 09:50 Rocephin/Ns 1 Gm/50 Ml IV 100 mls/hr Q24HR DEREK Administration Protocol Ibuprofen 600 mg 08/09/21 23:04 Ibuprofen 600 Mg Tab PO Q6H PRN Pain, Mild (1-3) Lorazepam 2 mg 08/09/21 23:04 08/10/21 08:06 Lorazepam 2 Mg/Ml Vial IV 2 mg Q1H PRN Administration CIWA-Ar 8-15 Lorazepam 4 mg 08/09/21 23:04 Lorazepam 2 Mg/Ml Vial IV Q1H PRN CIWA-Ar 16-25 Lorazepam 4 mg 08/09/21 23:04 Lorazepam 2 Mg/Ml Vial IV Q15MIN PRN CIWA-Ar >25 Magnesium Hydroxide 30 ml 08/09/21 23:04 Magnesium Hydroxide (Mom) Oral Liqd Udc PO Q4H PRN Constipation Morphine Sulfate 2 mg 08/09/21 23:04 Morphine 2 Mg/1 Ml Inj IV Q4H PRN Pain, Moderate (4-6) Morphine Sulfate 4 mg 08/09/21 23:04 Morphine 4 Mg/1 Ml Inj IV Q4H PRN Pain , Severe (7-10) Ondansetron HCl 4 mg 08/09/21 23:04 Ondansetron 4 Mg/2 Ml Inj IV Q8H PRN Nausea And Vomiting Sodium Chloride 10 ml 08/10/21 10:00 08/10/21 09:50 Sodium Chloride 0.9% 10 Ml Flush Syringe IV 10 ml BID DEREK Administration Sodium Chloride 10 ml 08/09/21 23:04 Sodium Chloride 0.9% 10 Ml Flush Syringe IV PRN PRN LINE FLUSH
--- NOTE | 2021-08-10 11:06 | Gastroenterology Consultation ---
History of Present Illness - Reason for Consult Consult date: 08/10/21 - History of Present Illness Ms. Brambila is a 40 y/o AA F who was brought to the ED yesterday because her daughter found her unresponsive. I was unable to obtain a history from pt. was at bedside and also unable to provide much information. Per , pt has "liver issues" from drinking, but has not drank in the past week. He denies prior episodes of delirium/confusion. Last known normal reported afternoon. states that his daughter reported Ms. Brambila was c/o gagging w/o N/V for the past week. says that pt is followed by an [place] doctor, but did not know who. Per nursing, pt has had diarrhea since coming to the floor, but no vomiting. Past History Past Medical History: anemia, liver disease Past Surgical History: No surgical history Social history: alcohol abuse Family history: no significant family history Medications and Allergies Allergies Allergy/AdvReac Type Severity Reaction Status Date / Time No Known Allergies Allergy Unverified 08/09/21 20:35 Active Meds: Active Medications Ceftriaxone Sodium (Rocephin/Ns 1 Gm/50 Ml) 1 gm in 50 mls @ 100 mls/hr IV Q24HR DEREK; Protocol Last Admin: 08/10/21 09:50 Dose: 100 mls/hr Ibuprofen (Ibuprofen 600 Mg Tab) 600 mg PO Q6H PRN PRN Reason: Pain, Mild (1-3) Lorazepam (Lorazepam 2 Mg/Ml Vial) 2 mg IV Q1H PRN PRN Reason: CIWA-Ar 8-15 Last Admin: 08/10/21 08:06 Dose: 2 mg Lorazepam (Lorazepam 2 Mg/Ml Vial) 4 mg IV Q1H PRN PRN Reason: CIWA-Ar 16-25 Lorazepam (Lorazepam 2 Mg/Ml Vial) 4 mg IV Q15MIN PRN PRN Reason: CIWA-Ar >25 Magnesium Hydroxide (Magnesium Hydroxide (Mom) Oral Liqd Udc) 30 ml PO Q4H PRN PRN Reason: Constipation Morphine Sulfate (Morphine 2 Mg/1 Ml Inj) 2 mg IV Q4H PRN PRN Reason: Pain, Moderate (4-6) Morphine Sulfate (Morphine 4 Mg/1 Ml Inj) 4 mg IV Q4H PRN PRN Reason: Pain , Severe (7-10) Ondansetron HCl (Ondansetron 4 Mg/2 Ml Inj) 4 mg IV Q8H PRN PRN Reason: Nausea And Vomiting Sodium Chloride (Sodium Chloride 0.9% 10 Ml Flush Syringe) 10 ml IV BID DEREK Last Admin: 08/10/21 09:50 Dose: 10 ml Sodium Chloride (Sodium Chloride 0.9% 10 Ml Flush Syringe) 10 ml IV PRN PRN PRN Reason: LINE FLUSH Review of Systems - Review of Systems ROS unobtainable: due to mental status Exam - Constitutional Vital Signs: Temp Pulse Resp BP Pulse Ox 97 F L 75 15 93/37 100 08/10/21 08:00 08/10/21 09:21 08/10/21 09:21 08/10/21 09:21 08/10/21 09:21 - Gastrointestinal General gastrointestinal: Present: soft, non-tender, non-distended - Labs CBC & Chem 7: 08/09/21 21:25 08/10/21 04:34 Lab Results: Laboratory Results - last 24 hr 08/09/21 08/09/21 08/09/21 21:25 21:25 21:25 WBC 13.4 H RBC 2.06 L Hgb 7.4 L Hct 21.9 L MCV 106 H MCH 36 H MCHC 34 RDW 20.8 H Plt Count 108 L Lymph % (Auto) 14.2 [place] % (Auto) 7.3 Eos % (Auto) 0.2 Baso % (Auto) 0.2 Lymph # (Auto) 1.9 Pettis # (Auto) 1.0 H Eos # (Auto) 0.0 Baso # (Auto) 0.0 Seg Neutrophils % 78.1 H Seg Neutrophils # 10.5 H PT 33.7 H INR 2.85 H APTT 49.2 H Sodium 137 Potassium 4.9 Chloride 100.8 Carbon Dioxide 17 L Anion Gap 24 BUN 30 H Creatinine 1.1 Estimated GFR 54 BUN/Creatinine Ratio 27 Glucose 126 H POC Glucose Lactic Acid Calcium 8.7 Magnesium Total Bilirubin 19.40 H AST 174 H ALT 53 Alkaline Phosphatase 97 Ammonia Total Creatine Kinase 81 Troponin T < 0.010 Total Protein 7.8 Albumin 2.5 L Albumin/Globulin Ratio 0.5 TSH HCG, Quant Urine Color Urine Turbidity Urine pH Ur Specific Whitney Urine Protein Urine Glucose (UA) Urine Ketones Urine Blood Urine Nitrite Ur Reducing Substances Urine Bilirubin Urine Ictotest Urine Urobilinogen Ur Leukocyte Esterase Urine WBC (Auto) Urine RBC (Auto) U Epithel Cells (Auto) Calcium Oxalate Crystal Urine Mucus Salicylates Urine Opiates Screen Urine Methadone Screen Acetaminophen Ur Barbiturates Screen Ur Phencyclidine Scrn Ur Amphetamines Screen U Benzodiazepines Scrn Urine Cocaine Screen U Marijuana (THC) Screen Drugs of Abuse Note Plasma/Serum Alcohol Blood Type Antibody Screen 08/09/21 08/09/21 08/09/21 21:25 21:25 21:25 WBC RBC Hgb Hct MCV MCH MCHC RDW Plt Count Lymph % (Auto) [place] % (Auto) Eos % (Auto) Baso % (Auto) Lymph # (Auto) [place] # (Auto) Eos # (Auto) Baso # (Auto) Seg Neutrophils % Seg Neutrophils # PT INR APTT Sodium Potassium Chloride Carbon Dioxide Anion Gap BUN Creatinine Estimated GFR BUN/Creatinine Ratio Glucose POC Glucose Lactic Acid Calcium Magnesium Total Bilirubin AST ALT Alkaline Phosphatase Ammonia 293.0 H Total Creatine Kinase Troponin T Total Protein Albumin Albumin/Globulin Ratio TSH 2.380 HCG, Quant Urine Color Urine Turbidity Urine pH Ur Specific Whitney Urine Protein Urine Glucose (UA) Urine Ketones Urine Blood Urine Nitrite Ur Reducing Substances Urine Bilirubin Urine Ictotest Urine Urobilinogen Ur Leukocyte Esterase Urine WBC (Auto) Urine RBC (Auto) U Epithel Cells (Auto) Calcium Oxalate Crystal Urine Mucus Salicylates < 0.3 L Urine Opiates Screen Urine Methadone Screen Acetaminophen Ur Barbiturates Screen Ur Phencyclidine Scrn Ur Amphetamines Screen U Benzodiazepines Scrn Urine Cocaine Screen U Marijuana (THC) Screen Drugs of Abuse Note Plasma/Serum Alcohol Blood Type Antibody Screen 08/09/21 08/09/21 08/09/21 21:25 21:25 21:25 WBC RBC Hgb Hct MCV MCH MCHC RDW Plt Count Lymph % (Auto) [place] % (Auto) Eos % (Auto) Baso % (Auto) Lymph # (Auto) [place] # (Auto) Eos # (Auto) Baso # (Auto) Seg Neutrophils % Seg Neutrophils # PT INR APTT Sodium Potassium Chloride Carbon Dioxide Anion Gap BUN Creatinine Estimated GFR BUN/Creatinine Ratio Glucose POC Glucose Lactic Acid Calcium Magnesium Total Bilirubin AST ALT Alkaline Phosphatase Ammonia Total Creatine Kinase Troponin T Total Protein Albumin Albumin/Globulin Ratio TSH HCG, Quant < 2 Urine Color Urine Turbidity Urine pH Ur Specific Whitney Urine Protein Urine Glucose (UA) Urine Ketones Urine Blood Urine Nitrite Ur Reducing Substances Urine Bilirubin Urine Ictotest Urine Urobilinogen Ur Leukocyte Esterase Urine WBC (Auto) Urine RBC (Auto) U Epithel Cells (Auto) Calcium Oxalate Crystal Urine Mucus Salicylates Urine Opiates Screen Urine Methadone Screen Acetaminophen 5.0 L Ur Barbiturates Screen Ur Phencyclidine Scrn Ur Amphetamines Screen U Benzodiazepines Scrn Urine Cocaine Screen U Marijuana (THC) Screen Drugs of Abuse Note Plasma/Serum Alcohol < 0.01 Blood Type Antibody Screen 08/09/21 08/09/21 08/09/21 21:25 21:26 21:38 WBC RBC Hgb Hct MCV MCH MCHC RDW Plt Count Lymph % (Auto) [place] % (Auto) Eos % (Auto) Baso % (Auto) Lymph # (Auto) Pettis # (Auto) Eos # (Auto) Baso # (Auto) Seg Neutrophils % Seg Neutrophils # PT INR APTT Sodium Potassium Chloride Carbon Dioxide Anion Gap BUN Creatinine Estimated GFR BUN/Creatinine Ratio Glucose POC Glucose 117 H Lactic Acid Calcium Magnesium 1.90 Total Bilirubin AST ALT Alkaline Phosphatase Ammonia Total Creatine Kinase Troponin T Total Protein Albumin Albumin/Globulin Ratio TSH HCG, Quant Urine Color Urine Turbidity Urine pH Ur Specific Whitney Urine Protein Urine Glucose (UA) Urine Ketones Urine Blood Urine Nitrite Ur Reducing Substances Urine Bilirubin Urine Ictotest Urine Urobilinogen Ur Leukocyte Esterase Urine WBC (Auto) Urine RBC (Auto) U Epithel Cells (Auto) Calcium Oxalate Crystal Urine Mucus Salicylates Urine Opiates Screen Urine Methadone Screen Acetaminophen Ur Barbiturates Screen Ur Phencyclidine Scrn Ur Amphetamines Screen U Benzodiazepines Scrn Urine Cocaine Screen U Marijuana (THC) Screen Drugs of Abuse Note Plasma/Serum Alcohol Blood Type A POSITIVE Antibody Screen Negative 08/09/21 08/09/21 08/09/21 21:43 21:43 22:45 WBC RBC Hgb Hct MCV MCH MCHC RDW Plt Count Lymph % (Auto) [place] % (Auto) Eos % (Auto) Baso % (Auto) Lymph # (Auto) Pett[place] # (Auto) Eos # (Auto) Baso # (Auto) Seg Neutrophils % Seg Neutrophils # PT INR APTT Sodium Potassium Chloride Carbon Dioxide Anion Gap BUN Creatinine Estimated GFR BUN/Creatinine Ratio Glucose POC Glucose Lactic Acid 4.80 H* Calcium Magnesium Total Bilirubin AST ALT Alkaline Phosphatase Ammonia Total Creatine Kinase Troponin T Total Protein Albumin Albumin/Globulin Ratio TSH HCG, Quant Urine Color [place] Urine Turbidity Clear Urine pH 6.0 Ur Specific Whitney 1.020 Urine Protein <15 mg/dl Urine Glucose (UA) Neg Urine Ketones Neg Urine Blood Moderate A Urine Nitrite Neg Ur Reducing Substances Not Reportable Urine Bilirubin Color interference Urine Ictotest Positive Urine Urobilinogen < 2.0 Ur Leukocyte Esterase Neg Urine WBC (Auto) 4.0 Urine RBC (Auto) 3.0 U Epithel Cells (Auto) 2.0 Calcium Oxalate Crystal Few Urine Mucus Few Salicylates Urine Opiates Screen Presumptive negative Urine Methadone Screen Presumptive negative Acetaminophen Ur Barbiturates Screen Presumptive negative Ur Phencyclidine Scrn Presumptive negative Ur Amphetamines Screen Presumptive negative U Benzodiazepines Scrn Presumptive negative Urine Cocaine Screen Presumptive negative U Marijuana (THC) Screen Presumptive negative Drugs of Abuse Note Disclamer Plasma/Serum Alcohol Blood Type Antibody Screen 08/10/21 08/10/21 08/10/21 04:34 04:34 04:34 WBC RBC Hgb Hct MCV MCH MCHC RDW Plt Count Lymph % (Auto) Pett[place] % (Auto) Eos % (Auto) Baso % (Auto) Lymph # (Auto) Pettis # (Auto) Eos # (Auto) Baso # (Auto) Seg Neutrophils % Seg Neutrophils # PT INR APTT Sodium 136 L Potassium 4.7 Chloride 104.1 Carbon Dioxide 18 L Anion Gap 19 BUN 32 H Creatinine 0.8 Estimated GFR > 60 BUN/Creatinine Ratio 40 Glucose 109 H POC Glucose Lactic Acid 2.40 H* Calcium 8.7 Magnesium Total Bilirubin AST ALT Alkaline Phosphatase Ammonia 73.0 H Total Creatine Kinase Troponin T Total Protein Albumin Albumin/Globulin Ratio TSH HCG, Quant Urine Color Urine Turbidity Urine pH Ur Specific Whitney Urine Protein Urine Glucose (UA) Urine Ketones Urine Blood Urine Nitrite Ur Reducing Substances Urine Bilirubin Urine Ictotest Urine Urobilinogen Ur Leukocyte Esterase Urine WBC (Auto) Urine RBC (Auto) U Epithel Cells (Auto) Calcium Oxalate Crystal Urine Mucus Salicylates Urine Opiates Screen Urine Methadone Screen Acetaminophen Ur Barbiturates Screen Ur Phencyclidine Scrn Ur Amphetamines Screen U Benzodiazepines Scrn Urine Cocaine Screen U Marijuana (THC) Screen Drugs of Abuse Note Plasma/Serum Alcohol Blood Type Antibody Screen 08/10/21 08/10/21 04:34 Unknown WBC RBC Hgb Hct MCV MCH MCHC RDW Plt Count Lymph % (Auto) [place] % (Auto) Eos % (Auto) Baso % (Auto) Lymph # (Auto) Pett[place] # (Auto) Eos # (Auto) Baso # (Auto) Seg Neutrophils % Seg Neutrophils # PT INR APTT Sodium Potassium Chloride Carbon Dioxide Anion Gap BUN Creatinine Estimated GFR BUN/Creatinine Ratio Glucose POC Glucose Lactic Acid 1.90 Calcium Magnesium Total Bilirubin AST ALT Alkaline Phosphatase Ammonia Total Creatine Kinase 86 Troponin T Total Protein Albumin Albumin/Globulin Ratio TSH HCG, Quant Urine Color Urine Turbidity Urine pH Ur Specific Whitney Urine Protein Urine Glucose (UA) Urine Ketones Urine Blood Urine Nitrite Ur Reducing Substances Urine Bilirubin Urine Ictotest Urine Urobilinogen Ur Leukocyte Esterase Urine WBC (Auto) Urine RBC (Auto) U Epithel Cells (Auto) Calcium Oxalate Crystal Urine Mucus Salicylates Urine Opiates Screen Urine Methadone Screen Acetaminophen Ur Barbiturates Screen Ur Phencyclidine Scrn Ur Amphetamines Screen U Benzodiazepines Scrn Urine Cocaine Screen U Marijuana (THC) Screen Drugs of Abuse Note Plasma/Serum Alcohol Blood Type Antibody Screen Assessment and Plan 1. Cirrhosis/Hepatic encephalopathy - CT a/p 08/09 revealed cirrhosis w/ portal HTN, mild splenomegaly, trace ascites, and varices - start lactulose 30g QID - start xifaxan 550 BID - goal of 2-3 BM/day - continue to monitor mental status
[2021-08-10] MEDS: D5W/0.45% NACL 1,000 ML IV SCH (12:34)
--- NOTE | 2021-08-10 13:31 | Electrocardiograph Report ---
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
--- NOTE | 2021-08-10 13:51 | XRay Report ---
ABDOMEN 2 VIEW(S) INDICATION / CLINICAL INFORMATION: Confirmation of feeding tube. COMPARISON: CT abdomen/pelvis from yesterday FINDINGS: TUBES / LINES: Dobbhoff tube placement with tip projecting in the right mid abdomen, presumably in th e distal stomach. BOWEL GAS PATTERN: No significant abnormality. FREE AIR / EXTRALUMINAL GAS: None seen. ADDITIONAL FINDINGS: No significant additional findings. IMPRESSION: 1. DHT as above. Signer Name: Bob James MD Signed: 08/10/2021 1:47 PM Workstation Name: [id number]
[2021-08-10] MEDS: LACTULOSE 20 GM/30 ML ORAL LIQD PO SCH ×2 (13:55→17:12)
[2021-08-10] MEDS: RIFAXIMIN 550 MG TAB PO SCH ×2 (13:55→21:18)
[2021-08-10] MEDS ORDERED: PHYTONADIONE 5 MG/0.5 ML *ORAL LIQUID PO ONE (16:04)
[2021-08-11] MEDS: LACTULOSE 20 GM/30 ML ORAL LIQD PO SCH ×4 (00:05→17:15)
[2021-08-11] MEDS: LORazepam 2 MG/ML VIAL IV PRN ×2 (00:17→20:19)
[2021-08-11] MEDS: D5W/0.45% NACL 1,000 ML IV SCH ×2 (01:29→17:15)
[2021-08-11 05:21] LABS: Hemoglobin 6.4 gm/dl (10.1-14.3); INR 2.08 (0.87-1.13); Mean Corpuscular HGB Conc 34 % (30-34); Mean Corpuscular Volume 106 fl (79-97); Red Blood Count 1.77 M/mm3 (3.65-5.03)
[2021-08-11 05:35] LABS: Alanine Aminotransferase 52 units/L (7-56); Albumin 2.1 g/dL (3.9-5); BUN/Creatinine Ratio 30; Blood Urea Nitrogen 27 mg/dL (7-17); Calcium 8.8 mg/dL (8.4-10.2); Hemolysis Index 0
[2021-08-11 06:39] LABS: Hematocrit 18.8 % (30.3-42.9); Platelet Count 82 K/mm3 (140-440); Red Cell Distribution Width 21.3 % (13.2-15.2)
[2021-08-11] MEDS ORDERED: SODIUM CHLORIDE 0.9% 500 ML 500 ML IV SCH (07:00)
--- NOTE | 2021-08-11 07:28 | Progress Note ---
Assessment and Plan Assessment and plan: 40-year-old -[place] female with known history of alcohol abuse brought in to the emergency room today for evaluation of changes in mental status. Information was obtained from the ER staff as patient is unable to give any history at this time and family members were also not available. Patient was said to have been found by family unresponsive on the floor and therefore EMS was called in. Work-up in the emergency room today, labs were globally abnormal with leukocytosis of 13.4, hemoglobin of 7.4 and hematocrit of 21.9. Platelet count was 108. INR was 2.85. CO2 of 17, BUN of 38 and creatinine of 1.1. Lactic acid is 4.8. AST of 174. Total bilirubin of 19.4. Urinalysis essentially unremarkable. Alcohol level was less than 0.01. Patient being admitted with acute encephalopathy and anemia. CT abdomen and pelvis IMPRESSION: 1. Cirrhosis with portal hypertension manifested by mild splenomegaly, trace ascites and varices. 2. Cholelithiasis. 1.Acute Encephalopathy secondary to liver cirrhosis 2.Anemia severe multifactorial 3.Elevated Liver Enzymes 4.Alcohol Abuse per history 5.Fall 6. Cholelithiasis 7. Secondary coagulopathy due to liver failure with INR of 2.85 8. Portal hypertension 9. Morbid obesity 10. Thrombocytosis Plan: 1. Patient admitted and will be closely monitored in the IMCU. Continue IMCU care due to severe encephalopathy. This morning 08/11 mental status has improved. We will discontinue NG tube and initiate oral diet. My understanding is that the would like the patient transferred to [place] at this time the patient is not a candidate for liver transplant I have advised the patient and will also advised the that transfer will likely work with her primary care physician requesting and then at [place] to help initiate transfer. I did provide counseling to the patient about need to quit alcohol use. 2. Customer Experience Intern has been consulted for evaluation and recommendations. And input noted we will continue CIWA protocol lactulose and xifaxan. Will await their recommendation on initiation of steroids due to elevated DF 3. Meanwhile, patient has been started on lactulose. 4. We will place patient on alcohol withdrawal protocol. 5. We will continue to monitor labs including PT/INR. 6. Patient also commenced on empiric IV antibiotics. 7. Had extensive discussion with the discussed goals of care advanced directive for 35 minutes. He verbalized understanding is the severity of her illness. 8. Weight loss discussion with patient more awake 9. Blood transfusion as ordered we will monitor H&H closely DVT Prophylaxis: SCD Code Status: Full Code. Poor prognosis Critical care time 35 minutes History Interval history: Patient seen and examined this morning more awake and responsive. Per nurse rachelle abdullahi passed swallow evaluation. Hospitalist Physical - Physical exam Narrative exam: VITAL SIGNS: Reviewed. GENERAL: The patient appears normally developed, morbidly obese lethargic. Vital signs as documented. HEAD: No signs of head trauma. EYES: Pupils are equal. Significant scleral icterus extraocular motions intact. EARS: Hearing grossly intact. MOUTH: Oropharynx is normal. NECK: No adenopathy, no JVD. CHEST: Chest with clear breath sounds bilaterally. No wheezes, rales, or rhonchi. CARDIAC: Regular rate and rhythm. S1 and S2, without murmurs, gallops, or rubs. VASCULAR: No Edema. Peripheral pulses normal and equal in all extremities. ABDOMEN: Soft, non tender and non distended. No rebound or guarding, and no masses palpated. Bowel Sounds normal. MUSCULOSKELETAL: Good range of motion of all major joints. Extremities without clubbing, cyanosis or edema. NEUROLOGIC EXAM: awake and oriented x3. No focal sensory or strength deficits. Speech normal. Follows commands but without PSYCHIATRIC: Mood sedated SKIN: Jaundice detail exam as documented in skin assessment - Constitutional Vitals: Temp Pulse Resp BP Pulse Ox 97.7 F 83 19 106/54 100 08/11/21 03:38 08/11/21 07:00 08/11/21 07:00 08/11/21 07:00 08/11/21 07:00 General appearance: Present: no acute distress, well-nourished HEART Score - HEART Score Troponin: Troponin T < 0.010 ng/mL (0.00-0.029) 08/09/21 21:25 Results - Labs CBC & Chem 7: 08/11/21 04:45 08/11/21 04:45 Labs: Laboratory Last Values WBC 7.3 K/mm3 (4.5-11.0) 08/11/21 04:45 RBC 1.77 M/mm3 (3.65-5.03) L 08/11/21 04:45 Hgb 6.4 gm/dl (10.1-14.3) L 08/11/21 04:45 Hct 18.8 % (30.3-42.9) L* 08/11/21 04:45 MCV 106 fl (79-97) H 08/11/21 04:45 MCH 36 pg (28-32) H 08/11/21 04:45 MCHC 34 % (30-34) 08/11/21 04:45 RDW 21.3 % (13.2-15.2) H 08/11/21 04:45 Plt Count 82 K/mm3 (140-440) L 08/11/21 04:45 Lymph % (Auto) 14.2 % (13.4-35.0) 08/09/21 21:25 [place] % (Auto) 7.3 % (0.0-7.3) 08/09/21 21:25 Eos % (Auto) 0.2 % (0.0-4.3) 08/09/21 21:25 Baso % (Auto) 0.2 % (0.0-1.8) 08/09/21 21:25 Lymph # (Auto) 1.9 K/mm3 (1.2-5.4) 08/09/21 21:25 [place] # (Auto) 1.0 K/mm3 (0.0-0.8) H 08/09/21 21:25 Eos # (Auto) 0.0 K/mm3 (0.0-0.4) 08/09/21 21:25 Baso # (Auto) 0.0 K/mm3 (0.0-0.1) 08/09/21 21:25 Seg Neutrophils % 78.1 % (40.0-70.0) H 08/09/21 21:25 Seg Neutrophils # 10.5 K/mm3 (1.8-7.7) H 08/09/21 21:25 PT 26.1 Sec. (12.2-14.9) H 08/11/21 04:45 INR 2.08 (0.87-1.13) H 08/11/21 04:45 APTT 49.2 Sec. (24.2-36.6) H 08/09/21 21:25 Sodium 141 mmol/L (137-145) 08/11/21 04:45 Potassium 3.4 mmol/L (3.6-5.0) L D 08/11/21 04:45 Chloride 106.3 mmol/L (98-107) 08/11/21 04:45 Carbon Dioxide 20 mmol/L (22-30) L 08/11/21 04:45 Anion Gap 18 mmol/L 08/11/21 04:45 BUN 27 mg/dL (7-17) H 08/11/21 04:45 Creatinine 0.9 mg/dL (0.6-1.2) 08/11/21 04:45 Estimated GFR > 60 ml/min 08/11/21 04:45 BUN/Creatinine Ratio 30 % 08/11/21 04:45 Glucose 124 mg/dL (65-100) H 08/11/21 04:45 POC Glucose 117 mg/dL (70-105) H 08/09/21 21:26 Lactic Acid 1.90 mmol/L (0.7-2.0) 08/10/21 Unknown Calcium 8.8 mg/dL (8.4-10.2) 08/11/21 04:45 Magnesium 1.90 mg/dL (1.7-2.3) 08/09/21 21:25 Total Bilirubin 17.20 mg/dL (0.1-1.2) H 08/11/21 04:45 AST 173 units/L (5-40) H 08/11/21 04:45 ALT 52 units/L (7-56) 08/11/21 04:45 Alkaline Phosphatase 98 units/L (35-129) 08/11/21 04:45 Ammonia 73.0 umol/L (25-60) H 08/10/21 04:34 Total Creatine Kinase 86 units/L (30-135) 08/10/21 04:34 Troponin T < 0.010 ng/mL (0.00-0.029) 08/09/21 21:25 Total Protein 6.9 g/dL (6.3-8.2) 08/11/21 04:45 Albumin 2.1 g/dL (3.9-5) L 08/11/21 04:45 Albumin/Globulin Ratio 0.4 % 08/11/21 04:45 TSH 2.380 mlU/mL (0.270-4.200) 08/09/21 21:25 HCG, Quant < 2 mIU/mL (0-4) 08/09/21 21:25 Urine Color [place] (Yellow) 08/09/21 21:43 Urine Turbidity Clear (Clear) 08/09/21 21:43 Urine pH 6.0 (5.0-7.0) 08/09/21 21:43 Ur Specific [place] 1.020 (1.003-1.030) 08/09/21 21:43 Urine Protein <15 mg/dl mg/dL (Negative) 08/09/21 21:43 Urine Glucose (UA) Neg mg/dL (Negative) 08/09/21 21:43 Urine Ketones Neg mg/dL (Negative) 08/09/21 21:43 Urine Blood Moderate (Negative) A 08/09/21 21:43 Urine Nitrite Neg (Negative) 08/09/21 21:43 Ur Reducing Substances Not Reportable 08/09/21 21:43 Urine Bilirubin Color interference (Negative) 08/09/21 21:43 Urine Ictotest Positive (Negative) 08/09/21 21:43 Urine Urobilinogen < 2.0 mg/dL (<2.0) 08/09/21 21:43 Ur Leukocyte Esterase Neg (Negative) 08/09/21 21:43 Urine WBC (Auto) 4.0 /HPF (0.0-6.0) 08/09/21 21:43 Urine RBC (Auto) 3.0 /HPF (0.0-6.0) 08/09/21 21:43 U Epithel Cells (Auto) 2.0 /HPF (0-13.0) 08/09/21 21:43 Calcium Oxalate Crystal Few 08/09/21 21:43 Urine Mucus Few /HPF 08/09/21 21:43 Salicylates < 0.3 mg/dL (2.8-20.0) L 08/09/21 21:25 Urine Opiates Screen Presumptive negative 08/09/21 21:43 Urine Methadone Screen Presumptive negative 08/09/21 21:43 Acetaminophen 5.0 ug/mL (10.0-30.0) L 08/09/21 21:25 Ur Barbiturates Screen Presumptive negative 08/09/21 21:43 Ur Phencyclidine Scrn Presumptive negative 08/09/21 21:43 Ur Amphetamines Screen Presumptive negative 08/09/21 21:43 U Benzodiazepines Scrn Presumptive negative 08/09/21 21:43 Urine Cocaine Screen Presumptive negative 08/09/21 21:43 U Marijuana (THC) Screen Presumptive negative 08/09/21 21:43 Drugs of Abuse Note Disclamer 08/09/21 21:43 Plasma/Serum Alcohol < 0.01 % (0-0.07) 08/09/21 21:25 Hep Bs Antigen Non-reactive (Negative) 08/11/21 04:45 Hepatitis C Antibody Non-reactive (NonReactive) 08/11/21 04:45 Blood Type A POSITIVE 08/09/21 21:38 Antibody Screen Negative 08/09/21 21:38 Crossmatch See Detail 08/09/21 21:38 Microbiology: Microbiology 08/09/21 21:43 Urine,Catheterized - Straight Catheter Urine Culture - Preliminary NO GROWTH AFTER 24 HOURS 08/09/21 23:35 Peripheral/Venous Blood Culture - Preliminary Culture in Progress 08/09/21 22:45 Peripheral/Venous Blood Culture - Preliminary Culture in Progress Willis/IV: Voiding Method External Female Catheter Active Medications - Current Medications Current Medications: Generic Name Dose Route Start Last Admin Trade Name Freq PRN Reason Stop Dose Admin Ceftriaxone Sodium 1 gm in 50 mls @ 100 mls/hr 08/10/21 10:00 08/10/21 09:50 Rocephin/Ns 1 Gm/50 Ml IV 100 mls/hr Q24HR DEREK Administration Protocol Dextrose/Sodium Chloride 1,000 mls @ 75 mls/hr 08/10/21 13:00 08/11/21 01:29 D5/0.45ns IV 75 mls/hr DIRECT DEREK Administration Sodium Chloride 500 mls @ 0 mls/hr 08/11/21 07:00 Nacl 0.9% 500 Ml IV 08/11/21 18:00 ONCE@0700 DEREK As Directed Lactulose 20 gm 08/10/21 13:00 08/11/21 05:30 Lactulose 20 Gm/30 Ml Oral Liqd PO 20 gm Q6HR DEREK Administration Lansoprazole 30 mg 08/11/21 10:00 Lansoprazole 30 Mg Solutab FEEDTUBE QDAY DEREK Lorazepam 2 mg 08/09/21 23:04 08/11/21 00:17 Lorazepam 2 Mg/Ml Vial IV 2 mg Q1H PRN [facility] Lorazepam 4 mg 08/09/21 23:04 Lorazepam 2 Mg/Ml Vial IV Q1H PRN CIWA-Ar 16-25 Lorazepam 4 mg 08/09/21 23:04 Lorazepam 2 Mg/Ml Vial IV Q15MIN PRN CIWA-Ar >25 Magnesium Hydroxide 30 ml 08/09/21 23:04 Magnesium Hydroxide (Mom) Oral Liqd Udc PO Q4H PRN Constipation Ondansetron HCl 4 mg 08/09/21 23:04 Ondansetron 4 Mg/2 Ml Inj IV Q8H PRN Nausea And Vomiting Rifaximin 550 mg 08/10/21 13:00 08/10/21 21:18 Rifaximin 550 Mg Tab PO 550 mg BID DEREK Administration Sodium Chloride 10 ml 08/10/21 10:00 08/10/21 21:18 Sodium Chloride 0.9% 10 Ml Flush Syringe IV 10 ml BID DEREK Administration Sodium Chloride 10 ml 08/09/21 23:04 Sodium Chloride 0.9% 10 Ml Flush Syringe IV PRN PRN LINE FLUSH Nutrition/Malnutrition Assess - Dietary Evaluation Nutrition/Malnutrition Findings: Nutrition Notes Start: 08/10/21 12:15 Freq: Status: Active Protocol: Document 08/10/21 12:15 [facility] (Rec: 08/10/21 12:24 [facility] [id number]) Nutrition Notes Need for Assessment generated from: MD Order,Education Initial or Follow up Assessment Other Pertinent Diagnosis Cirrhosis, Hepatic encephalopathy, Anemia, EtOH dependency Current Diet No diet ordered Labs/Tests Na 136 BUN 32 Ammonia 73 Pertinent Medications Lactulose Height 5 ft 3 in Weight 100.5 kg Ec[place] Body Weight (kg) 52.27 BMI 39.2 Weight Status Obese Subjective/Other Information RD consulted for diet education and TF. Pt inappropriate for diet education at this time. CT scan of abdomen/pelvis revealed cirrhosis with portal HTN, trace ascites, varices and mild splenomegaly. Pt on CIWA protocol. Burn Absent Trauma Absent GI Symptoms Diarrhea Difficulty In Swallowing Skin Integrity/Comment Jaundiced skin Fluid Accumulation Moderate to Severe (severe) #1 Nutrition Diagnosis Inadequate oral intake Etiology encephalopathy, cirrhosis As Evidenced by Signs and Symptoms pt NPO Is patient on ventilator? No Is Patient Ambulatory and/or Out of Bed No REE-([facility]-confined to bed) 1963.776 Kcal/Kg value to use for calculation 15 Approximate Energy Requirements Using 1508 kcal/Kg Calculation Used for Recommendations 65-70% REE Additional Notes Energy needs: 3026-0846 kcal/ day Pro needs 0.6-0.8g/kg adjBW: 46-61g/day Fluid needs per MD Nutrition Intervention Nutrition Support: Osmolite 1.5 at 40ml/hr with 120ml water flush q4h. Kcal 1,440 Protein (gm) 60 Carbohydrates (gm) 195 Fat (gm) 47 Fluid (mL) 732 Fiber (gm) 0 Goal #1 TF tolerance Goal #2 TF to meet 65-70% energy and at least 75% pro needs Anticipated Discharge Needs: Continue EN support if necessary Follow-Up By: 08/11/21 Additional Comments F/U: new TF, hepatic encephalopathy/ammonia lab
[2021-08-11] MEDS: cefTRIAXone/NS 1 GM/50 ML 1 GM/50 ML BAG IV SCH (09:31)
[2021-08-11] MEDS: MULTIVITAMIN / MINERAL ORAL LIQUID 15 ML PO SCH (09:32)
[2021-08-11] MEDS: LANSOPRAZOLE 30 MG SOLUTAB FEEDTUBE SCH (09:32)
[2021-08-11] MEDS: RIFAXIMIN 550 MG TAB PO SCH ×2 (09:32→22:45)
--- NOTE | 2021-08-11 15:22 | Gastroenterology Progress Note ---
Assessment and Plan 1. Decompensated cirrhosis 2. Alc hepatitis 3. AMS/HE -mentation is hopefully improving. cont scheduled lactulose dosing and xifaxin. trend liver enzymes. t bili and INR is lower, hold off on steroids for time being and cont supportive care/trend liver enzymes and coags otherwise from gi stand point. Subjective Date of service: 08/11/21 Principal diagnosis: AMS, cirrhosis Interval history: pt's at bedside, reports improved mentation, still confused but arousable and answers some basic questions. has FMS in place with non-bloody stool output. Objective - Constitutional Vitals: Temp Pulse Resp BP Pulse Ox 97.6 F 79 17 111/58 100 08/11/21 12:00 08/11/21 13:10 08/11/21 13:10 08/11/21 13:10 08/11/21 13:10 General appearance: other (nad, sleeping/arousable) - EENT Eyes: scleral icterus - Respiratory Respiratory effort: normal Respiratory: bilateral: CTA - Cardiovascular Rhythm: regular Heart Sounds: Present: S1 & S2 - Integumentary Integumentary: Present: jaundice - Neurologic Neurological: oriented to person - Labs CBC & Chem 7: 08/11/21 04:45 08/11/21 04:45 Labs: Laboratory Results - last 24 hr 08/09/21 08/10/21 08/11/21 21:38 21:40 04:45 WBC 7.3 RBC 1.77 L Hgb 6.4 L Hct 18.8 L* MCV 106 H MCH 36 H MCHC 34 RDW 21.3 H Plt Count 82 L PT INR Sodium Potassium Chloride Carbon Dioxide Anion Gap BUN Creatinine Estimated GFR BUN/Creatinine Ratio Glucose POC Glucose 117 H Calcium Total Bilirubin AST ALT Alkaline Phosphatase Total Protein Albumin Albumin/Globulin Ratio Hep Bs Antigen Hepatitis C Antibody Blood Type A POSITIVE Antibody Screen Negative Crossmatch See Detail 08/11/21 08/11/21 08/11/21 04:45 04:45 04:45 WBC RBC Hgb Hct MCV MCH MCHC RDW Plt Count PT INR Sodium 141 Potassium 3.4 L D Chloride 106.3 Carbon Dioxide 20 L Anion Gap 18 BUN 27 H Creatinine 0.9 Estimated GFR > 60 BUN/Creatinine Ratio 30 Glucose 124 H POC Glucose Calcium 8.8 Total Bilirubin 17.20 H AST 173 H ALT 52 Alkaline Phosphatase 98 Total Protein 6.9 Albumin 2.1 L Albumin/Globulin Ratio 0.4 Hep Bs Antigen Non-reactive Hepatitis C Antibody Non-reactive Blood Type Antibody Screen Crossmatch 08/11/21 04:45 WBC RBC Hgb Hct MCV MCH MCHC RDW Plt Count PT 26.1 H INR 2.08 H Sodium Potassium Chloride Carbon Dioxide Anion Gap BUN Creatinine Estimated GFR BUN/Creatinine Ratio Glucose POC Glucose Calcium Total Bilirubin AST ALT Alkaline Phosphatase Total Protein Albumin Albumin/Globulin Ratio Hep Bs Antigen Hepatitis C Antibody Blood Type Antibody Screen Crossmatch - Imaging CT scan: report reviewed
[2021-08-11 15:42] LABS: Basophils % (Auto) 0.5 % (0.0-1.8); Eosinophils # (Auto) 0.1 K/mm3 (0.0-0.4); Eosinophils % (Auto) 1.1 % (0.0-4.3); Hematocrit 22.5 % (30.3-42.9); Hemoglobin 7.8 gm/dl (10.1-14.3); Lymphocytes # (Auto) 1.6 K/mm3 (1.2-5.4); Lymphocytes % (Auto) 18.1 % (13.4-35.0); Mean Corpuscular HGB Conc 35 % (30-34); Mean Corpuscular Volume 105 fl (79-97); Monocytes # (Auto) 1.1 K/mm3 (0.0-0.8); Monocytes % (Auto) 12.8 % (0.0-7.3); Red Blood Count 2.14 M/mm3 (3.65-5.03)
[2021-08-11 15:45] LABS: Platelet Count 77 K/mm3 (140-440); Red Cell Distribution Width 23.7 % (13.2-15.2)
[2021-08-12] MEDS: LACTULOSE 20 GM/30 ML ORAL LIQD PO SCH ×5 (00:25→23:10)
[2021-08-12 05:23] LABS: Alanine Aminotransferase 61 units/L (7-56); Albumin 2.1 g/dL (3.9-5); Blood Urea Nitrogen 18 mg/dL (7-17); Calcium 8.7 mg/dL (8.4-10.2); Hemolysis Index 77
[2021-08-12 05:40] LABS: BUN/Creatinine Ratio 90
[2021-08-12] MEDS: D5W/0.45% NACL 1,000 ML IV SCH (05:47)
--- NOTE | 2021-08-12 07:55 | Progress Note ---
Assessment and Plan Assessment and plan: 40-year-old -[place] female with known history of alcohol abuse brought in to the emergency room today for evaluation of changes in mental status. Information was obtained from the ER staff as patient is unable to give any history at this time and family members were also not available. Patient was said to have been found by family unresponsive on the floor and therefore EMS was called in. Work-up in the emergency room today, labs were globally abnormal with leukocytosis of 13.4, hemoglobin of 7.4 and hematocrit of 21.9. Platelet count was 108. INR was 2.85. CO2 of 17, BUN of 38 and creatinine of 1.1. Lactic acid is 4.8. AST of 174. Total bilirubin of 19.4. Urinalysis essentially unremarkable. Alcohol level was less than 0.01. Patient being admitted with acute encephalopathy and anemia. CT abdomen and pelvis IMPRESSION: 1. Cirrhosis with portal hypertension manifested by mild splenomegaly, trace ascites and varices. 2. Cholelithiasis. 1.Acute Encephalopathy secondary to liver cirrhosis 2.Anemia severe multifactorial 3.Elevated Liver Enzymes/decompensated cirrhosis 4.Alcohol Abuse per history 5.Fall 6. Cholelithiasis 7. Secondary coagulopathy due to liver failure with INR of 2.85 8. Portal hypertension 9. Morbid obesity 10. 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 Patient admitted and will be closely monitored in the IMCU. 08/12:Patient is clinically improving. Discussed with automation and control engineer patient can be transferred to the medical floor. She continues to tolerate p.o. intake. We will continue current management recommend strongly that the patient follows with dry sander at [facility] on discharge. I have updated the yesterday on overall medical condition. 08/11 mental status has improved. We will discontinue NG tube and initiate oral diet. My understanding is that the would like the patient transferred to [facility] at this time the patient is not a candidate for liver transplant I have advised the patient and will also advised the that transfer will likely work with her primary care physician requesting and then at [facility] to help in itiate transfer. I did provide counseling to the patient about need to quit alcohol use. 2. Financial Sales Representative has been consulted for evaluation and recommendations. And input noted we will continue CIWA protocol lactulose and xifaxan. Will await their recommendation on initiation of steroids due to elevated DF 3. Meanwhile, patient has been started on lactulose. 4. We will place patient on alcohol withdrawal protocol. 5. We will continue to monitor labs including PT/INR. 6. Patient also commenced on empiric IV antibiotics. 7. Had extensive discussion with the discussed goals of care advanced directive for 35 minutes. He verbalized understanding is the severity of her illness. 8. Weight loss discussion with patient more awake 9. Blood transfusion as ordered we will monitor H&H closely DVT Prophylaxis: SCD Code Status: Full Code. Poor prognosis Critical care time 35 minutes History Interval history: Patient seen and examined this morning more awake and responsive. No acute issues noted overnight. Hospitalist Physical - Physical exam Narrative exam: VITAL SIGNS: Reviewed. GENERAL: The patient appears normally developed, morbidly obese lethargic. Vital signs as documented. HEAD: No signs of head trauma. EYES: Pupils are equal. Significant scleral icterus extraocular motions intact. EARS: Hearing grossly intact. MOUTH: Oropharynx is normal. NECK: No adenopathy, no JVD. CHEST: Chest with clear breath sounds bilaterally. No wheezes, rales, or rhonchi. CARDIAC: Regular rate and rhythm. S1 and S2, without murmurs, gallops, or rubs. VASCULAR: No Edema. Peripheral pulses normal and equal in all extremities. ABDOMEN: Soft, non tender and non distended. No rebound or guarding, and no masses palpated. Bowel Sounds normal. MUSCULOSKELETAL: Good range of motion of all major joints. Extremities without clubbing, cyanosis or edema. NEUROLOGIC EXAM: awake and oriented x3. No focal sensory or strength deficits. Speech normal. Follows commands but without PSYCHIATRIC: Mood sedated SKIN: Jaundice detail exam as documented in skin assessment - Constitutional Vitals: Temp Pulse Resp BP Pulse Ox 98.2 F 83 17 124/73 96 08/12/21 04:00 08/12/21 06:00 08/12/21 06:00 08/12/21 06:00 08/12/21 06:00 General appearance: Present: no acute distress, well-nourished HEART Score - HEART Score Troponin: Troponin T < 0.010 ng/mL (0.00-0.029) 08/09/21 21:25 Results - Labs CBC & Chem 7: 08/12/21 08:40 08/12/21 04:27 Labs: Laboratory Last Values WBC 8.8 K/mm3 (4.5-11.0) 08/11/21 15: RBC 2.14 M/mm3 (3.65-5.03) L 08/11/21 15: Hgb 7.8 gm/dl (10.1-14.3) L 08/11/21 15: Hct 22.5 % (30.3-42.9) L 08/11/21 15: MCV 105 fl (79-97) H 08/11/21 15:23 MCH 36 pg (28-32) H 08/11/21 15:23 MCHC 35 % (30-34) H 08/11/21 15: RDW 23.7 % (13.2-15.2) H 08/11/21 15: Plt Count 77 K/mm3 (140-440) L 08/11/21 15: Lymph % (Auto) 18.1 % (13.4-35.0) 08/11/21 15:23 Todd % (Auto) 12.8 % (0.0-7.3) H 08/11/21 15:23 Eos % (Auto) 1.1 % (0.0-4.3) 08/11/21 15: Baso % (Auto) 0.5 % (0.0-1.8) 08/11/21 15: Lymph # (Auto) 1.6 K/mm3 (1.2-5.4) 08/11/21 15:23 Todd # (Auto) 1.1 K/mm3 (0.0-0.8) H 08/11/21 15:23 Eos # (Auto) 0.1 K/mm3 (0.0-0.4) 08/11/21 15: Baso # (Auto) 0.0 K/mm3 (0.0-0.1) 08/11/21: Seg Neutrophils % 67.5 % (40.0-70.0) 08/11/21 15: Seg Neutrophils # 6.0 K/mm3 (1.8-7.7) 08/11/21 15: PT 26.1 Sec. (12.2-14.9) H 08/11/21 04:45 INR 2.08 (0.87-1.13) H 08/11/21 04:45 APTT 49.2 Sec. (24.2-36.6) H 08/09/21 21:25 Sodium 132 mmol/L (137-145) L D 08/12/21 04:27 Potassium 3.7 mmol/L (3.6-5.0) 08/12/21 04:27 Chloride 101.7 mmol/L (98-107) 08/12/21 04:27 Carbon Dioxide 17 mmol/L (22-30) L 08/12/21 04:27 Anion Gap 17 mmol/L 08/12/21 04:27 BUN 18 mg/dL (7-17) H 08/12/21 04:27 Creatinine < 0.2 mg/dL (0.6-1.2) L D 08/12/21 04:27 Estimated GFR > 60 ml/min 08/12/21 04:27 BUN/Creatinine Ratio 90 % 08/12/21 04:27 Glucose 110 mg/dL (65-100) H 08/12/21 04:27 POC Glucose 117 mg/dL (70-105) H 08/10/21 21:40 Lactic Acid 1.90 mmol/L (0.7-2.0) 08/10/21 Unknown Calcium 8.7 mg/dL (8.4-10.2) 08/12/21 04:27 Magnesium 1.90 mg/dL (1.7-2.3) 08/09/21 21:25 Total Bilirubin 18.00 mg/dL (0.1-1.2) H 08/12/21 04:27 AST 205 units/L (5-40) H 08/12/21 04:27 ALT 61 units/L (7-56) H 08/12/21 04:27 Alkaline Phosphatase 99 units/L (35-129) 08/12/21 04:27 Ammonia 73.0 umol/L (25-60) H 08/10/21 04:34 Total Creatine Kinase 86 units/L (30-135) 08/10/21 04:34 Troponin T < 0.010 ng/mL (0.00-0.029) 08/09/21 21:25 Total Protein 7.4 g/dL (6.3-8.2) 08/12/21 04:27 Albumin 2.1 g/dL (3.9-5) L 08/12/21 04:27 Albumin/Globulin Ratio 0.4 % 08/12/21 04:27 TSH 2.380 mlU/mL (0.270-4.200) 08/09/21 21:25 HCG, Quant < 2 mIU/mL (0-4) 08/09/21 21:25 Urine Color [place] (Yellow) 08/09/21 21:43 Urine Turbidity Clear (Clear) 08/09/21 21:43 Urine pH 6.0 (5.0-7.0) 08/09/21 21:43 Ur Specific [place] 1.020 (1.003-1.030) 08/09/21 21:43 Urine Protein <15 mg/dl mg/dL (Negative) 08/09/21 21:43 Urine Glucose (UA) Neg mg/dL (Negative) 08/09/21 21:43 Urine Ketones Neg mg/dL (Negative) 08/09/21 21:43 Urine Blood Moderate (Negative) A 08/09/21 21:43 Urine Nitrite Neg (Negative) 08/09/21 21:43 Ur Reducing Substances Not Reportable 08/09/21 21:43 Urine Bilirubin Color interference (Negative) 08/09/21 21:43 Urine Ictotest Positive (Negative) 08/09/21 21:43 Urine Urobilinogen < 2.0 mg/dL (<2.0) 08/09/21 21:43 Ur Leukocyte Esterase Neg (Negative) 08/09/21 21:43 Urine WBC (Auto) 4.0 /HPF (0.0-6.0) 08/09/21 21:43 Urine RBC (Auto) 3.0 /HPF (0.0-6.0) 08/09/21 21:43 U Epithel Cells (Auto) 2.0 /HPF (0-13.0) 08/09/21 21:43 Calcium Oxalate Crystal Few 08/09/21 21:43 Urine Mucus Few /HPF 08/09/21 21:43 Salicylates < 0.3 mg/dL (2.8-20.0) L 08/09/21 21:25 Urine Opiates Screen Presumptive negative 08/09/21 21:43 Urine Methadone Screen Presumptive negative 08/09/21 21:43 Acetaminophen 5.0 ug/mL (10.0-30.0) L 08/09/21 21:25 Ur Barbiturates Screen Presumptive negative 08/09/21 21:43 Ur Phencyclidine Scrn Presumptive negative 08/09/21 21:43 Ur Amphetamines Screen Presumptive negative 08/09/21 21:43 U Benzodiazepines Scrn Presumptive negative 08/09/21 21:43 Urine Cocaine Screen Presumptive negative 08/09/21 21:43 U Marijuana (THC) Screen Presumptive negative 08/09/21 21:43 Drugs of Abuse Note Disclamer 08/09/21 21:43 Plasma/Serum Alcohol < 0.01 % (0-0.07) 08/09/21 21:25 Hep Bs Antigen Non-reactive (Negative) 08/11/21 04:45 Hepatitis C Antibody Non-reactive (NonReactive) 08/11/21 04:45 Blood Type A POSITIVE 08/09/21 21:38 Antibody Screen Negative 08/09/21 21:38 Crossmatch See Detail 08/09/21 21:38 Microbiology: Microbiology 08/09/21 23:35 Peripheral/Venous Blood Culture - Preliminary NO GROWTH AFTER 24 HOURS 08/09/21 22:45 Peripheral/Venous Blood Culture - Preliminary NO GROWTH AFTER 24 HOURS 08/09/21 21:43 Urine,Catheterized - Straight Catheter Urine Culture - Final NO GROWTH AFTER 48 HOURS Willis/IV: Voiding Method Incontinent Active Medications - Current Medications Current Medications: Generic Name Dose Route Start Last Admin Trade Name Freq PRN Reason Stop Dose Admin Ceftriaxone Sodium 1 gm in 50 mls @ 100 mls/hr 08/10/21 10:00 08/11/21 09:31 Rocephin/Ns 1 Gm/50 Ml IV 100 mls/hr Q24HR DEREK Administration Protocol Dextrose/Sodium Chloride 1,000 mls @ 75 mls/hr 08/10/21 13:00 08/12/21 05:47 D5/0.45ns IV 75 mls/hr DIRECT DEREK Administration Lactulose 20 gm 08/10/21 13:00 08/12/21 05:47 Lactulose 20 Gm/30 Ml Oral Liqd PO 20 gm Q6HR DEREK Administration Lansoprazole 30 mg 08/11/21 10:00 08/11/21 09:32 Lansoprazole 30 Mg Solutab FEEDTUBE 30 mg QDAY DEREK Administration Lorazepam 2 mg 08/09/21 23:04 08/11/21 20:19 Lorazepam 2 Mg/Ml Vial IV 2 mg Q1H PRN Administration CIWA-Ar 8-15 Lorazepam 4 mg 08/09/21 23:04 Lorazepam 2 Mg/Ml Vial IV Q1H PRN CIWA-Ar 16-25 Lorazepam 4 mg 08/09/21 23:04 Lorazepam 2 Mg/Ml Vial IV Q15MIN PRN CIWA-Ar >25 Magnesium Hydroxide 30 ml 08/09/21 23:04 Magnesium Hydroxide (Mom) Oral Liqd Udc PO Q4H PRN Constipation Ondansetron HCl 4 mg 08/09/21 23:04 08/11/21 20:19 Ondansetron 4 Mg/2 Ml Inj IV 4 mg Q8H PRN Administration Nausea And Vomiting Rifaximin 550 mg 08/10/21 13:00 08/11/21 22:45 Rifaximin 550 Mg Tab PO 550 mg BID DEREK Administration Sodium Chloride 10 ml 08/10/21 10:00 08/11/21 22:45 Sodium Chloride 0.9% 10 Ml Flush Syringe IV 10 ml BID DEREK Administration Sodium Chloride 10 ml 08/09/21 23:04 Sodium Chloride 0.9% 10 Ml Flush Syringe IV PRN PRN LINE FLUSH Nutrition/Malnutrition Assess - Dietary Evaluation Nutrition/Malnutrition Findings: Nutrition Notes Start: 08/10/21 12:15 Freq: Status: Active Protocol: Document 08/11/21 09:51 MILAGROS (Rec: 08/11/21 09:55 MILAGROS [id number]) Nutrition Notes Initial or Follow up Brief Note Current Diet FL (for lunch today) Labs/Tests BUN 27 K 3.4 Hct 18.8 tBili 17.2 Pertinent Medications D5 1/2NS at 75ml/hr Subjective/Other Information Per GI, NGT should be removed as soon as possible given the presence of varices. Therefore, NGT D/C'ed and diet advanced for lunch today; to be advanced to GI soft as tolerated. Pt passed swallow evaluation. Nutrition Intervention Follow-Up By: 08/13/21 Additional Comments F/U: PO tolerance, diet advancement
[2021-08-12 09:48] LABS: Hematocrit 22.6 % (30.3-42.9); Hemoglobin 7.7 gm/dl (10.1-14.3); Mean Corpuscular HGB Conc 34 % (30-34); Mean Corpuscular Volume 103 fl (79-97); Red Blood Count 2.19 M/mm3 (3.65-5.03)
[2021-08-12 09:50] LABS: Platelet Count 79 K/mm3 (140-440); Red Cell Distribution Width 23.1 % (13.2-15.2)
[2021-08-12] MEDS: RIFAXIMIN 550 MG TAB PO SCH ×2 (10:09→22:54)
[2021-08-12] MEDS: cefTRIAXone/NS 1 GM/50 ML 1 GM/50 ML BAG IV SCH (10:09)
[2021-08-12] MEDS: MULTIVITAMIN / MINERAL ORAL LIQUID 15 ML PO SCH (10:09)
[2021-08-12] MEDS: LANSOPRAZOLE 30 MG SOLUTAB FEEDTUBE SCH (10:09)
--- NOTE | 2021-08-12 10:18 | Gastroenterology Progress Note ---
Assessment and Plan 1. Decompensated cirrhosis +/- alc hepatitis 2. Hepatic encephalopathy -mentation improving, cont lactulose/xifaxin. diet as tolerated. trend liver enzymes and coags daily. last alcohol intake "a few weeks ago" per patient. will need close outpatient f/u with hepatology (was previously seen at [facility]) Subjective Date of service: 08/12/21 Principal diagnosis: AMS, cirrhosis Interval history: mentation improved, able to answer questions appropriately today. Objective - Exam Narrative Exam: Gen: nad, jaundiced HENT: dry mm, +++ icterus CV: rrr lungs: ctab abd: soft, nt - Constitutional Vitals: Temp Pulse Resp BP Pulse Ox 98.2 F 83 17 124/73 96 08/12/21 04:00 08/12/21 06:00 08/12/21 06:00 08/12/21 06:00 08/12/21 06:00 - Labs CBC & Chem 7: 08/12/21 08:40 08/12/21 04:27 Labs: Laboratory Results - last 24 hr 08/09/21 08/11/21 08/12/21 21:38 15:23 04:27 WBC 8.8 RBC 2.14 L Hgb 7.8 L Hct 22.5 L MCV 105 H MCH 36 H MCHC 35 H RDW 23.7 H Plt Count 77 L Lymph % (Auto) 18.1 [place] % (Auto) 12.8 H Eos % (Auto) 1.1 Baso % (Auto) 0.5 Lymph # (Auto) 1.6 [place] # (Auto) 1.1 H Eos # (Auto) 0.1 Baso # (Auto) 0.0 Seg Neutrophils % 67.5 Seg Neutrophils # 6.0 Sodium 132 L D Potassium 3.7 Chloride 101.7 Carbon Dioxide 17 L Anion Gap 17 BUN 18 H Creatinine < 0.2 L D Estimated GFR > 60 BUN/Creatinine Ratio 90 Glucose 110 H Calcium 8.7 Total Bilirubin 18.00 H AST 205 H ALT 61 H Alkaline Phosphatase 99 Total Protein 7.4 Albumin 2.1 L Albumin/Globulin Ratio 0.4 Crossmatch See Detail 08/12/21 08:40 WBC 8.3 RBC 2.19 L Hgb 7.7 L Hct 22.6 L MCV 103 H MCH 35 H MCHC 34 RDW 23.1 H Plt Count 79 L Lymph % (Auto) [place] % (Auto) Eos % (Auto) Baso % (Auto) Lymph # (Auto) [place] # (Auto) Eos # (Auto) Baso # (Auto) Seg Neutrophils % Seg Neutrophils # Sodium Potassium Chloride Carbon Dioxide Anion Gap BUN Creatinine Estimated GFR BUN/Creatinine Ratio Glucose Calcium Total Bilirubin AST ALT Alkaline Phosphatase Total Protein Albumin Albumin/Globulin Ratio Crossmatch
[2021-08-13 04:33] LABS: Hematocrit 22.5 % (30.3-42.9); Hemoglobin 7.9 gm/dl (10.1-14.3); Mean Corpuscular HGB Conc 35 % (30-34); Mean Corpuscular Volume 103 fl (79-97); Red Blood Count 2.18 M/mm3 (3.65-5.03)
[2021-08-13 04:34] LABS: Platelet Count 87 K/mm3 (140-440); Red Cell Distribution Width 22.5 % (13.2-15.2)
[2021-08-13 04:47] LABS: INR 2.64 (0.87-1.13)
[2021-08-13 04:54] LABS: Alanine Aminotransferase 65 units/L (7-56); Albumin 2.1 g/dL (3.9-5); Blood Urea Nitrogen 13 mg/dL (7-17); Calcium 8.5 mg/dL (8.4-10.2); Hemolysis Index 2
[2021-08-13 04:55] LABS: BUN/Creatinine Ratio 43
[2021-08-13] MEDS: LACTULOSE 20 GM/30 ML ORAL LIQD PO SCH ×3 (06:57→17:02)
--- NOTE | 2021-08-13 10:08 | Gastroenterology Progress Note ---
Assessment and Plan 1. Cirrhosis/Hepatic encephalopathy - CT a/p 08/09 revealed cirrhosis w/ portal HTN, mild splenomegaly, trace ascites, and varices - continue lactulose/xifaxan - goal of 2-3 BM/day - continue to monitor mental status Subjective Date of service: 08/13/21 Principal diagnosis: AMS, cirrhosis Interval history: Pt seen and examined. Laying comfortably in bed. No new complaints overnight. Pt states that she has been having may BMs and confirmed by nursing. Mentation continues to improve. Objective - Constitutional Vitals: Temp Pulse Resp BP Pulse Ox 98.3 F 91 H 24 108/57 97 08/13/21 08:00 08/13/21 09:00 08/13/21 09:00 08/13/21 09:00 08/13/21 09:00 General appearance: no acute distress - Labs CBC & Chem 7: 08/13/21 04:10 08/13/21 04:10 Labs: Laboratory Results - last 24 hr 08/12/21 08/13/21 08/13/21 18:57 04:10 04:10 WBC 10.0 RBC 2.18 L Hgb 7.9 L Hct 22.5 L MCV 103 H MCH 36 H MCHC 35 H RDW 22.5 H Plt Count 87 L PT 31.7 H INR 2.64 H Sodium Potassium Chloride Carbon Dioxide Anion Gap BUN Creatinine Estimated GFR BUN/Creatinine Ratio Glucose POC Glucose 141 H Calcium Total Bilirubin AST ALT Alkaline Phosphatase Total Protein Albumin Albumin/Globulin Ratio 08/13/21 04:10 WBC RBC Hgb Hct MCV MCH MCHC RDW Plt Count PT INR Sodium 133 L Potassium 3.7 Chloride 104.6 Carbon Dioxide 18 L Anion Gap 14 BUN 13 Creatinine 0.3 L D Estimated GFR > 60 BUN/Creatinine Ratio 43 Glucose 105 H POC Glucose Calcium 8.5 Total Bilirubin 19.30 H AST 193 H ALT 65 H Alkaline Phosphatase 105 Total Protein 7.9 Albumin 2.1 L Albumin/Globulin Ratio 0.4
[2021-08-13] MEDS: RIFAXIMIN 550 MG TAB PO SCH ×2 (10:18→21:19)
[2021-08-13] MEDS: MULTIVITAMIN / MINERAL ORAL LIQUID 15 ML PO SCH (10:18)
[2021-08-13] MEDS: cefTRIAXone/NS 1 GM/50 ML 1 GM/50 ML BAG IV SCH (10:18)
[2021-08-13] MEDS: LANSOPRAZOLE 30 MG SOLUTAB FEEDTUBE SCH (10:18)
--- NOTE | 2021-08-13 11:18 | Progress Note ---
Assessment and Plan Assessment and plan: 40-year-old -[place] female with known history of alcohol abuse brought in to the emergency room today for evaluation of changes in mental status. Information was obtained from the ER staff as patient is unable to give any history at this time and family members were also not available. Patient was said to have been found by family unresponsive on the floor and therefore EMS was called in. Work-up in the emergency room today, labs were globally abnormal with leukocytosis of 13.4, hemoglobin of 7.4 and hematocrit of 21.9. Platelet count was 108. INR was 2.85. CO2 of 17, BUN of 38 and creatinine of 1.1. Lactic acid is 4.8. AST of 174. Total bilirubin of 19.4. Urinalysis essentially unremarkable. Alcohol level was less than 0.01. Patient being admitted with acute encephalopathy and anemia. CT abdomen and pelvis IMPRESSION: 1. Cirrhosis with portal hypertension manifested by mild splenomegaly, trace ascites and varices. 2. Cholelithiasis. 1.Acute Encephalopathy secondary to liver cirrhosis 2.Anemia severe multifactorial 3.Elevated Liver Enzymes/decompensated cirrhosis 4.Alcohol Abuse per history 5.Fall 6. Cholelithiasis 7. Secondary coagulopathy due to liver failure with INR of 2.85 8. Portal hypertension 9. Morbid obesity 10. 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 Patient admitted and was monitored closely in the IMCU. 08/13: Patient still waiting for for bed on the medical floor. She continues to tolerate p.o. intake. I did discuss with whirley operator her desire to go home our concern is that with her continued increasing bilirubin and LFTs we will need to monitor her at least another 24 to 48 hours. If at that time clinically stable can be discharged with strong recommendation to follow-up with quarry supervisor dimension stone at [facility]. I had extensive conversation and counseling again 30 minutes today on need to quit alcohol use she verbalized understanding. 08/12:Patient is clinically improving. Discussed with whirley operator patient can be transferred to the medical floor. She continues to tolerate p.o. intake. We will continue current management recommend strongly that the patient follows with quarry supervisor dimension stone at [facility] on discharge. I have updated the yesterday on overall medical condition. 08/11 mental status has improved. We will discontinue NG tube and initiate oral diet. My understanding is that the would like the patient transferred to [facility] at this time the patient is not a candidate for liver transplant I have advised the patient and will also advised the that transfer will likely work with her primary care physician requesting and then at [facility] to help initiate transfer. I did provide counseling to the patient about need to quit alcohol use. 2. It Application Support Analyst has been consulted for evaluation and recommendations. And input noted we will continue CIWA protocol lactulose and xifaxan. Will await their recommendation on initiation of steroids due to elevated DF 3. Meanwhile, patient has been started on lactulose. 4. We will place patient on alcohol withdrawal protocol. 5. We will continue to monitor labs including PT/INR. 6. Patient also commenced on empiric IV antibiotics. 7. Had extensive discussion with the discussed goals of care advanced directive for 35 minutes. He verbalized understanding is the severity of her illness. 8. Weight loss discussion with patient more awake 9. Blood transfusion as ordered we will monitor H&H closely DVT Prophylaxis: SCD Code Status: Full Code. Poor prognosis Critical care time 35 minutes History Interval history: Patient seen and examined this morning awake and responsive with no acute complaint last night. She does continue to have diarrhea as a result of lactulose and rifaximin. Hospitalist Physical - Physical exam Narrative exam: VITAL SIGNS: Reviewed. GENERAL: The patient appears normally developed, morbidly obese improving lethargic lethargic. Vital signs as documented. HEAD: No signs of head trauma. EYES: Pupils are equal. Significant scleral icterus extraocular motions intact. EARS: Hearing grossly intact. MOUTH: Oropharynx is normal. NECK: No adenopathy, no JVD. CHEST: Chest with clear breath sounds bilaterally. No wheezes, rales, or rhonchi. CARDIAC: Regular rate and rhythm. S1 and S2, without murmurs, gallops, or rubs. VASCULAR: No Edema. Peripheral pulses normal and equal in all extremities. ABDOMEN: Soft, non tender and non distended. No rebound or guarding, and no masses palpated. Bowel Sounds normal. MUSCULOSKELETAL: Good range of motion of all major joints. Extremities without clubbing, cyanosis or edema. NEUROLOGIC EXAM: awake and oriented x3. No focal sensory or strength deficits. Speech normal. Follows commands PSYCHIATRIC: Mood sedated SKIN: Jaundice detail exam as documented in skin assessment - Constitutional Vitals: Temp Pulse Resp BP Pulse Ox 98.3 F 98 H 23 121/57 97 06/13/22 08:00 08/13/21 11:00 08/13/21 11:00 08/13/21 11:00 08/13/21 11:00 General appearance: Present: no acute distress, well-nourished HEART Score - HEART Score Troponin: Troponin T < 0.010 ng/mL (0.00-0.029) 08/09/21 21:25 Results - Labs CBC & Chem 7: 08/13/21 04:10 08/13/21 04:10 Labs: Laboratory Last Values WBC 10.0 K/mm3 (4.5-11.0) 08/13/21 04:10 RBC 2.18 M/mm3 (3.65-5.03) L 08/13/21 04:10 Hgb 7.9 gm/dl (10.1-14.3) L 08/13/21 04:10 Hct 22.5 % (30.3-42.9) L 08/13/21 04:10 MCV 103 fl (79-97) H 08/13/21 04:10 MCH 36 pg (28-32) H 08/13/21 04:10 MCHC 35 % (30-34) H 08/13/21 04:10 RDW 22.5 % (13.2-15.2) H 08/13/21 04:10 Plt Count 87 K/mm3 (140-440) L 08/13/21 04:10 Lymph % (Auto) 18.1 % (13.4-35.0) 08/11/21 15:23 [place] % (Auto) 12.8 % (0.0-7.3) H 08/11/21 15:23 Eos % (Auto) 1.1 % (0.0-4.3) 08/11/21 15:23 Baso % (Auto) 0.5 % (0.0-1.8) 08/11/21 15:23 Lymph # (Auto) 1.6 K/mm3 (1.2-5.4) 08/11/21 15:23 [place] # (Auto) 1.1 K/mm3 (0.0-0.8) H 08/11/21 15:23 Eos # (Auto) 0.1 K/mm3 (0.0-0.4) 08/11/21 15:23 Baso # (Auto) 0.0 K/mm3 (0.0-0.1) 08/11/21 15:23 Seg Neutrophils % 67.5 % (40.0-70.0) 08/11/21 15:23 Seg Neutrophils # 6.0 K/mm3 (1.8-7.7) 08/11/21 15:23 PT 31.7 Sec. (12.2-14.9) H 08/13/21 04:10 INR 2.64 (0.87-1.13) H 08/13/21 04:10 APTT 49.2 Sec. (24.2-36.6) H 08/09/21 21:25 Sodium 133 mmol/L (137-145) L 08/13/21 04:10 Potassium 3.7 mmol/L (3.6-5.0) 08/13/21 04:10 Chloride 104.6 mmol/L (98-107) 08/13/21 04:10 Carbon Dioxide 18 mmol/L (22-30) L 08/13/21 04:10 Anion Gap 14 mmol/L 08/13/21 04:10 BUN 13 mg/dL (7-17) 08/13/21 04:10 Creatinine 0.3 mg/dL (0.6-1.2) L D 08/13/21 04:10 Estimated GFR > 60 ml/min 08/13/21 04:10 BUN/Creatinine Ratio 43 % 08/13/21 04:10 Glucose 105 mg/dL (65-100) H 08/13/21 04:10 POC Glucose 141 mg/dL (70-105) H 08/12/21 18:57 Lactic Acid 1.90 mmol/L (0.7-2.0) 08/10/21 Unknown Calcium 8.5 mg/dL (8.4-10.2) 08/13/21 04:10 Magnesium 1.90 mg/dL (1.7-2.3) 08/09/21 21:25 Total Bilirubin 19.30 mg/dL (0.1-1.2) H 08/13/21 04:10 AST 193 units/L (5-40) H 08/13/21 04:10 ALT 65 units/L (7-56) H 08/13/21 04:10 Alkaline Phosphatase 105 units/L (35-129) 08/13/21 04:10 Ammonia 73.0 umol/L (25-60) H 08/10/21 04:34 Total Creatine Kinase 86 units/L (30-135) 08/10/21 04:34 Troponin T < 0.010 ng/mL (0.00-0.029) 08/09/21 21:25 Total Protein 7.9 g/dL (6.3-8.2) 08/13/21 04:10 Albumin 2.1 g/dL (3.9-5) L 08/13/21 04:10 Albumin/Globulin Ratio 0.4 % 08/13/21 04:10 TSH 2.380 mlU/mL (0.270-4.200) 08/09/21 21:25 HCG, Quant < 2 mIU/mL (0-4) 08/09/21 21:25 Urine Color [place] (Yellow) 08/09/21 21:43 Urine Turbidity Clear (Clear) 08/09/21 21:43 Urine pH 6.0 (5.0-7.0) 08/09/21 21:43 Ur Specific [place] 1.020 (1.003-1.030) 08/09/21 21:43 Urine Protein <15 mg/dl mg/dL (Negative) 08/09/21 21:43 Urine Glucose (UA) Neg mg/dL (Negative) 08/09/21 21:43 Urine Ketones Neg mg/dL (Negative) 08/09/21 21:43 Urine Blood Moderate (Negative) A 08/09/21 21:43 Urine Nitrite Neg (Negative) 08/09/21 21:43 Ur Reducing Substances Not Reportable 08/09/21 21:43 Urine Bilirubin Color interference (Negative) 08/09/21 21:43 Urine Ictotest Positive (Negative) 08/09/21 21:43 Urine Urobilinogen < 2.0 mg/dL (<2.0) 08/09/21 21:43 Ur Leukocyte Esterase Neg (Negative) 08/09/21 21:43 Urine WBC (Auto) 4.0 /HPF (0.0-6.0) 08/09/21 21:43 Urine RBC (Auto) 3.0 /HPF (0.0-6.0) 08/09/21 21:43 U Epithel Cells (Auto) 2.0 /HPF (0-13.0) 08/09/21 21:43 Calcium Oxalate Crystal Few 08/09/21 21:43 Urine Mucus Few /HPF 08/09/21 21:43 Salicylates < 0.3 mg/dL (2.8-20.0) L 08/09/21 21:25 Urine Opiates Screen Presumptive negative 08/09/21 21:43 Urine Methadone Screen Presumptive negative 08/09/21 21:43 Acetaminophen 5.0 ug/mL (10.0-30.0) L 08/09/21 21:25 Ur Barbiturates Screen Presumptive negative 08/09/21 21:43 Ur Phencyclidine Scrn Presumptive negative 08/09/21 21:43 Ur Amphetamines Screen Presumptive negative 08/09/21 21:43 U Benzodiazepines Scrn Presumptive negative 08/09/21 21:43 Urine Cocaine Screen Presumptive negative 08/09/21 21:43 U Marijuana (THC) Screen Presumptive negative 08/09/21 21:43 Drugs of Abuse Note Disclamer 08/09/21 21:43 Plasma/Serum Alcohol < 0.01 % (0-0.07) 08/09/21 21:25 Hep Bs Antigen Non-reactive (Negative) 08/11/21 04:45 Hepatitis C Antibody Non-reactive (NonReactive) 08/11/21 04:45 Blood Type A POSITIVE 08/09/21 21:38 Antibody Screen Negative 08/09/21 21:38 Crossmatch See Detail 08/09/21 21:38 Microbiology: Microbiology 08/09/21 23:35 Peripheral/Venous Blood Culture - Preliminary NO GROWTH AFTER 48 HOURS 08/09/21 22:45 Peripheral/Venous Blood Culture - Preliminary NO GROWTH AFTER 48 HOURS Willis/IV: Voiding Method Bedside Commode Active Medications - Current Medications Current Medications: Generic Name Dose Route Start Last Admin Trade Name Freq PRN Reason Stop Dose Admin Ceftriaxone Sodium 1 gm in 50 mls @ 100 mls/hr 08/10/21 10:00 08/13/21 10:18 Rocephin/Ns 1 Gm/50 Ml IV 08/16/21 10:29 100 mls/hr Q24HR DEREK Administration Protocol Lactulose 20 gm 08/10/21 13:00 08/13/21 06:57 Lactulose 20 Gm/30 Ml Oral Liqd PO 20 gm Q6HR DEREK Administration Lansoprazole 30 mg 08/11/21 10:00 08/13/21 10:18 Lansoprazole 30 Mg Solutab FEEDTUBE 30 mg QDAY DEREK Administration Lorazepam 2 mg 08/09/21 23:04 08/11/21 20:19 Lorazepam 2 Mg/Ml Vial IV 2 mg Q1H PRN Administration CIWA-Ar 8-15 Lorazepam 4 mg 08/09/21 23:04 Lorazepam 2 Mg/Ml Vial IV Q1H PRN CIWA-Ar 16-25 Lorazepam 4 mg 08/09/21 23:04 Lorazepam 2 Mg/Ml Vial IV Q15MIN PRN CIWA-Ar >25 Magnesium Hydroxide 30 ml 08/09/21 23:04 Magnesium Hydroxide (Mom) Oral Liqd Udc PO Q4H PRN Constipation Ondansetron HCl 4 mg 08/09/21 23:04 08/11/21 20:19 Ondansetron 4 Mg/2 Ml Inj IV 4 mg Q8H PRN Administration Nausea And Vomiting Rifaximin 550 mg 08/10/21 13:00 08/13/21 10:18 Rifaximin 550 Mg Tab PO 550 mg BID DEREK Administration Sodium Chloride 10 ml 08/10/21 10:00 08/13/21 10:18 Sodium Chloride 0.9% 10 Ml Flush Syringe IV 10 ml BID DEREK Administration Sodium Chloride 10 ml 08/09/21 23:04 Sodium Chloride 0.9% 10 Ml Flush Syringe IV PRN PRN LINE FLUSH Nutrition/Malnutrition Assess - Dietary Evaluation Nutrition/Malnutrition Findings: Nutrition Notes Start: 08/10/21 12:15 Freq: Status: Active Protocol: Document 08/11/21 09:51 MILAGROS (Rec: 08/11/21 09:55 MILAGROS [id number]) Nutrition Notes Initial or Follow up Brief Note Current Diet FL (for lunch today) Labs/Tests BUN 27 K 3.4 Hct 18.8 tBili 17.2 Pertinent Medications D5 1/2NS at 75ml/hr Subjective/Other Information Per GI, NGT should be removed as soon as possible given the presence of varices. Therefore, NGT D/C'ed and diet advanced for lunch today; to be advanced to GI soft as tolerated. Pt passed swallow evaluation. Nutrition Intervention Follow-Up By: 08/13/21 Additional Comments F/U: PO tolerance, diet advancement
[2021-08-13] MEDS: predniSONE 20 MG TAB PO SCH (13:30)
[2021-08-14] MEDS: LACTULOSE 20 GM/30 ML ORAL LIQD PO SCH ×2 (00:48→06:18)
[2021-08-14 05:17] LABS: Hematocrit 21.5 % (30.3-42.9); Hemoglobin 7.6 gm/dl (10.1-14.3); Mean Corpuscular HGB Conc 35 % (30-34); Mean Corpuscular Volume 102 fl (79-97)
[2021-08-14 05:21] LABS: Platelet Count 80 K/mm3 (140-440); Red Cell Distribution Width 22.5 % (13.2-15.2)
[2021-08-14 05:34] LABS: Alanine Aminotransferase 55 units/L (7-56); BUN/Creatinine Ratio 25; Blood Urea Nitrogen 15 mg/dL (7-17); Calcium 8.5 mg/dL (8.4-10.2); Hemolysis Index 6
[2021-08-14] MEDS: MULTIVITAMIN / MINERAL ORAL LIQUID 15 ML PO SCH (09:51)
[2021-08-14] MEDS: LANSOPRAZOLE 30 MG SOLUTAB FEEDTUBE SCH (09:52)
[2021-08-14] MEDS: RIFAXIMIN 550 MG TAB PO SCH (09:52)
[2021-08-14] MEDS: predniSONE 20 MG TAB PO SCH (09:52)
[2021-08-14] MEDS: cefTRIAXone/NS 1 GM/50 ML 1 GM/50 ML BAG IV SCH (09:53)
--- NOTE | 2021-08-14 10:02 | Gastroenterology Progress Note ---
<ALMAZ SÁNCHEZ - Last Filed: 08/14/21 10:19> Assessment and Plan 1. Cirrhosis/Hepatic encephalopathy - CT a/p 08/09 revealed cirrhosis w/ portal HTN, mild splenomegaly, trace ascites, and varices - continue lactulose/xifaxan/steroids - goal of 2-3 BM/day - mentation continues to improve, continue to monitor - AST 154 - ALT 55 - T bili 16.9 - would like to keep pt in the hospital for x1 more day to monitor given that we initiated steroid therapy yesterday Subjective Date of service: 08/14/21 Principal diagnosis: AMS, cirrhosis Interval history: Pt seen and examined. Laying comfortably in bed. No new complaints overnight. Pt states that she has been having BMs. Mentation continues to improve. Pt states that she would like to go home today. Objective - Constitutional Vitals: Temp Pulse Resp BP Pulse Ox 97.7 F 79 24 117/54 96 08/14/21 08:00 08/14/21 08:00 08/14/21 09:00 08/14/21 09:00 08/14/21 09:00 General appearance: no acute distress - EENT ENT: hearing intact - Gastrointestinal General gastrointestinal: Present: soft, non-tender, non-distended - Labs CBC & Chem 7: 08/14/21 04:35 08/14/21 04:35 Labs: Laboratory Results - last 24 hr 08/14/21 08/14/21 04:35 04:35 WBC 10.5 RBC 2.10 L Hgb 7.6 L Hct 21.5 L MCV 102 H MCH 36 H MCHC 35 H RDW 22.5 H Plt Count 80 L Sodium 135 L Potassium 4.2 Chloride 103.6 Carbon Dioxide 19 L Anion Gap 17 BUN 15 Creatinine 0.6 D Estimated GFR > 60 BUN/Creatinine Ratio 25 Glucose 123 H Calcium 8.5 Total Bilirubin 16.90 H AST 154 H ALT 55 Alkaline Phosphatase 110 Total Protein 7.2 Albumin 2.0 L Albumin/Globulin Ratio 0.4 <DAMEON CARLTON - Last Filed: 08/14/21 13:19> Assessment and Plan Patient seen and examined. I spent over 50% of time on management and care of the patient. t bili better today. patient is tearful and strongly requesting to go home. ideally, would monitor labs for a couple more days to assess continued response to steroids to determine continued tx for discontinuing medication. however, she states she will have labs done by end of week, remain abstinent from alcohol, and will f/u with jacquard fixer at [facility] soon after d ischarge. Objective - Constitutional Vitals: Temp Pulse Resp BP Pulse Ox 98.0 F 92 H 20 113/49 100 08/14/21 12:00 08/14/21 12:00 08/14/21 12:00 08/14/21 11:00 08/14/21 12:00 - Labs CBC & Chem 7: 08/14/21 04:35 08/14/21 04:35 Labs: Laboratory Results - last 24 hr 08/14/21 08/14/21 04:35 04:35 WBC 10.5 RBC 2.10 L Hgb 7.6 L Hct 21.5 L MCV 102 H MCH 36 H MCHC 35 H RDW 22.5 H Plt Count 80 L Sodium 135 L Potassium 4.2 Chloride 103.6 Carbon Dioxide 19 L Anion Gap 17 BUN 15 Creatinine 0.6 D Estimated GFR > 60 BUN/Creatinine Ratio 25 Glucose 123 H Calcium 8.5 Total Bilirubin 16.90 H AST 154 H ALT 55 Alkaline Phosphatase 110 Total Protein 7.2 Albumin 2.0 L Albumin/Globulin Ratio 0.4
[2021-08-14 13:42] VITALS: BP 119/66
--- NOTE | 2021-08-14 14:53 | Discharge Summary ---
Providers - Providers Date of Admission: 08/09/21 23:54 Date of discharge: 08/14/21 Attending physician: DA CARLTON MD 08/09/21 22:35 Consult to Physician [CONS] Urgent Comment: Dr. Eastman spoke with Dr. Krishna @ [phone] Consulting Provider: EARNEST KRISHNA Physician Instructions: Reason For Exam: hepatic insufficiency 08/09/21 23:04 Consult to Dietitian/Nutrition [CONS] Routine Physician Instructions: Reason For Exam: Reason for Consult: Diet education 08/10/21 12:15 Consult to Dietitian/Nutrition [CONS] Routine Physician Instructions: Reason For Exam: Reason for Consult: Write/Manage Tube Feeding Primary care physician: CHANI LEMUS Hospitalization Reason for admission: altered mentation Condition: Serious Hospital course: History of present illness Per admitting doctor: 40-year-old -[place] female with known history of alcohol abuse brought in to the emergency room today for evaluation of changes in mental status. Information was obtained from the ER staff as patient is unable to give any history at this time and family members were also not available. Patient was said to have been found by family unresponsive on the floor and therefore EMS was called in. Work-up in the emergency room today, labs were globally abnormal with leukocytosis of 13.4, hemoglobin of 7.4 and hematocrit of 21.9. Platelet count was 108. INR was 2.85. CO2 of 17, BUN of 38 and creatinine of 1.1. Lactic acid is 4.8. AST of 174. Total bilirubin of 19.4. Urinalysis essentially unremarkable. Alcohol level was less than 0.01. Patient being admitted with acute encephalopathy and anemia. Hospital course Patient was admitted for acute hepatic encephalopathy. She has a long known history of alcohol abuse. On admission her labs were globally abnormal with leukocytosis of 13.4, hemoglobin of 7.4 and hematocrit of 21.9. Platelet count was 108. INR was 2.85. CO2 of 17, BUN of 38 and creatinine of 1.1. Lactic acid is 4.8. AST of 174. Total bilirubin of 19.4. CT imaging of the abdomen and pelvis was consistent with cirrhosis with portal hypertension manifested by mild splenomegaly and trace ascites and varices. Gastroenterology saw and evaluated the patient. Initiated the patient on steroids, rifaximin, lactulose. Mentation improved throughout hospital stay. Patient will likely need dedicated oil field equipment mechanic as an outpatient. Recommendation for patient to follow- up with [facility] hepatology department. She will be discharged home with prescriptions for prednisone, rifaximin, lactulose. She was advised to abstain from drinking alcohol. Assessments 1.Acute Encephalopathy secondary to liver cirrhosis 2.Anemia severe multifactorial 3.Elevated Liver Enzymes/decompensated cirrhosis 4.Alcohol Abuse per history 5.Fall 6. Cholelithiasis 7. Secondary coagulopathy due to liver failure with INR of 2.85 8. Portal hypertension 9. Morbid obesity 10. Thrombocytopenia secondary to bone marrow suppression from EtOH use Disposition: HOME / SELF CARE / HOMELESS Final Discharge Diagnosis (Prints w/discharge instructions): hepatic encephalopathy, cirrhosis Time spent for discharge: 35 Core Measure Documentation - Palliative Care Palliative Care/ Comfort Measures: Not Applicable - Core Measures Any of the following diagnoses?: none Exam - Physical Exam Narrative exam: Narrative exam: VITAL SIGNS: Reviewed. GENERAL: The patient appears normally developed, morbidly obese improving lethargic lethargic. Vital signs as documented. HEAD: No signs of head trauma. EYES: Pupils are equal. Significant scleral icterus extraocular motions intact. EARS: Hearing grossly intact. MOUTH: Oropharynx is normal. NECK: No adenopathy, no JVD. CHEST: Chest with clear breath sounds bilaterally. No wheezes, rales, or rhonchi. CARDIAC: Regular rate and rhythm. S1 and S2, without murmurs, gallops, or rubs. VASCULAR: No Edema. Peripheral pulses normal and equal in all extremities. ABDOMEN: Soft, non tender and non distended. No rebound or guarding, and no masses palpated. Bowel Sounds normal. MUSCULOSKELETAL: Good range of motion of all major joints. Extremities without clubbing, cyanosis or edema. NEUROLOGIC EXAM: awake and oriented x3. No focal sensory or strength deficits. Speech normal. Follows commands PSYCHIATRIC: Mood sedated SKIN: Jaundice detail exam as documented in skin assessment - Constitutional Vitals: Temp Pulse Resp BP Pulse Ox 98.0 F 91 H 22 119/66 100 08/14/21 12:00 08/14/21 13:00 08/14/21 13:00 08/14/21 13:00 08/14/21 12:00 Plan Additional Instructions: Patient was admitted for acute hepatic encephalopathy. She has a long known history of alcohol abuse. On admission her labs were globally abnormal with leukocytosis of 13.4, hemoglobin of 7.4 and hematocrit of 21.9. Platelet count was 108. INR was 2.85. CO2 of 17, BUN of 38 and cr eatinine of 1.1. Lactic acid is 4.8. AST of 174. Total bilirubin of 19.4. CT imaging of the abdomen and pelvis was consistent with cirrhosis with portal hypertension manifested by mild splenomegaly and trace ascites and varices. Gastroenterology saw and evaluated the patient. Initiated the patient on steroids, rifaximin, lactulose. Mentation improved throughout hospital stay. Hepatic indices demonstrated improvement upon initiation of steroids. Patient will likely need dedicated oil field equipment mechanic as an outpatient. Recommendation for patient to follow-up with [facility] hepatology department. She will be discharged home with prescriptions for prednisone, rifaximin, lactulose. She was advised to abstain from drinking alcohol. Follow up with: CHANI LEMUS MD [Primary Care Provider] - 7 Days Prescriptions: Lactulose [Cephulac] 20 gm PO Q6HR 30 Days #1 bottle predniSONE [Deltasone] 40 mg PO QDAY 30 Days #30 tablet Rifaximin [Xifaxan] 550 mg PO BID 30 Days #60 tablet
== END 2021-08-14 16:07 | disposition home or self-care (01) | DRG 442 ==
LOC: ED 19:31 → IMCU 23:54
PROVIDERS: ADMIT Internal Medicine Geriatric Medicine; ATTEND Internal Medicine
PROC: 30233N1 Transfusion of Nonautologous Red Blood Cells into Peripheral Vein, Percutaneous Approach (ICD-10-PCS; principal; 2021-08-11)
DX: K72.90 Hepatic failure, unspecified without coma (principal); K76.6 Portal hypertension; D64.9 Anemia, unspecified; R79.1 Abnormal coagulation profile; K70.31 Alcoholic cirrhosis of liver with ascites; K70.10 Alcoholic hepatitis without ascites; F10.10 Alcohol abuse, uncomplicated; K80.20 Calculus of gallbladder without cholecystitis without obstruction; E66.01 Morbid (severe) obesity due to excess calories; D75.839 Thrombocytosis, unspecified; R16.1 Splenomegaly, not elsewhere classified; D69.6 Thrombocytopenia, unspecified; Z79.899 Other long term (current) drug therapy; Z68.39 Body mass index [BMI] 39.0-39.9, adult; Y90.9 Presence of alcohol in blood, level not specified
CPT/HCPCS: 36415; 70450; 71045; 72125; 74018; 74176; 80048; 80053; 80307; 80320; 81001; 82140; 82270; 82550; 82962; 83735; 84443; 84484; 84702; 85025; 85027; 85610; 85730; 86706; 86803; 86850; 86900; 86901; 86920; 87040; 87086; 93005; G0378; J7070; C9113; G0480; J0696; J1940; J2060; J2405; J3430; J7040; P9016